=== PATIENT | female | born 1930 ===

== ENCOUNTER 2017-02-26 12:17 | Inpatient (IN) | payer MEDICAID, OTHER ==
[2017-02-26 12:24] VITALS: BMI 18.6
--- NOTE | 2017-02-26 12:44 | C.PDOC ---
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 FAMILY STATES WALKING TO BATHROOM, TRIPPED AND FELL ONTO L SIDE. NO OTHER TRAUMA. NO HAQ, CP, OTHER ASSOC SX NPO SINCE 729 EXAM NAD HEENT ATRAUM NECK SUPPLE EXT L HIP SHORTENED, EXT ROTATED. NO ROM. R LE AROM WO DIFF. SKIN INTACT NEURO INTACT - HPI Time Seen by Provider: 02/26/17 12:27 Chief Complaint (Nursing): Hip Pain History Per: Patient History/Exam Limitations: language barrier Injury Occurred (Timing): Just Before Arrival Location Of Injury: Left: Hip Recent travel outside of the [place]: No Past Medical History Reviewed: Historical Data, Nursing Documentation, Vital Signs Vital Signs: Last Vital Signs Temp 98.3 F 02/26/17 12:20 Pulse 64 02/26/17 12:50 Resp 18 02/26/17 12:50 BP 139/61 02/26/17 12:50 Pulse Ox 98 02/26/17 14:02 - Medical History PMH: HTN Family History: States: Unknown Family Hx - Social History Hx Alcohol Use: No Hx Substance Use: No - Immunization History Hx Tetanus Toxoid Vaccination: Yes Hx Influenza Vaccination: Yes Hx Pneumococcal Vaccination: No Review Of Systems Except As Marked, All Systems Reviewed And Found Negative. Constitutional: Negative for: Fever, Chills Cardiovascular: Negative for: Chest Pain, Palpitations Respiratory: Negative for: Cough, Shortness of Breath, Wheezing Gastrointestinal: Negative for: Nausea, Vomiting, Abdominal Pain Musculoskeletal: Positive for: Other (LEFT HIP PAIN ) Skin: Negative for: Rash Neurological: Negative for: Weakness, Numbness, Headache, Dizziness Physical Exam - Physical Exam Appears: Non-toxic, No Acute Distress Skin: Normal Color, Warm, Dry Head: Atraumatic, Normacephalic Eye(s): bilateral: Normal Inspection, PERRL, EOMI Oral Mucosa: Moist Neck: Normal ROM, No Midline Cervical Tenderness, No Paracervical Tenderness, No Step Off Deformity, Supple Chest: Symmetrical, No Tenderness Cardiovascular: Rhythm Regular Respiratory: Normal Breath Sounds, No Rales, No Rhonchi, No Wheezing Gastrointestinal/Abdominal: Soft, No Tenderness, No Distention, No Guarding, No Rebound Extremity: Capillary Refill (< 2 SEC. ), Other (EXT L HIP SHORTENED, EXT ROTATED. NO ROM. R LE AROM WO DIFF.) Extremity: Bilateral: Normal Color And Temperature Pulses: Left Dorsalis Pedis: Normal, Right Dorsalis Pedis: Normal Neurological/Psych: Oriented x3, Normal Speech, Normal Cognition, Normal Motor, Normal Sensation, Other (NEURO INTACT) ED Course And Treatment - Laboratory Results Result Diagrams: 02/26/17 13:49 02/26/17 13:49 ECG: Interpreted By Me ECG Rhythm: Sinus Rhythm ECG Interpretation: Normal Rate From EC O2 Sat by Pulse Oximetry: 98 Pulse Ox Interpretation: Normal - Radiology CXR: Interpreted by Me CXR Interpretation: Yes: No Acute Disease - Other Rad LEFT HIP X-RAY X-Ray: Interpreted by Me, Viewed By Me Interpretation: +FRACTURE Progress - Re-Evaluation Re-evaluation Note: 02/26/17 13:31 D/W DR Russell SANTANA WILL ADMIT - Data Reviewed Data Reviewed: Lab, Diagnostic imaging, EKG - Continuity of Care Discussed patient case with:: Patient, Family-HIPPA compliant, On-call PMD-pt unassigned Disposition Counseled Patient/Family Regarding: Studies Performed, Diagnosis - Disposition Disposition: HOSPITALIZED Disposition Time: 13:47 Condition: STABLE - POA Present On Arrival: Falls Or Trauma - Clinical Impression Clinical Impression: Hip fracture - Scribe Statement The provider has reviewed the documentation as recorded by the Scribe CHRIS CHA All medical record entries made by the Scribe were at my direction and personally dictated by me. I have reviewed the chart and agree that the record accurately reflects my personal performance of the history, physical exam, medical decision making, and the department course for this patient. I have also personally directed, reviewed, and agree with the discharge instructions and disposition. Decision To Admit - Pt Status Changed To: Hospital Disposition Of: Inpatient - Admit Certification Admit to Inpatient:: After my assessment, the patient will require hospitalization for at least two midnights. This is because of the severity of symptoms shown, intensity of services needed, and/or the medical risk in this patient being treated as an outpatient. - InPatient: Physician Admission Certification: I certify that this patient requires 2 or more midnights of care for the following reason:: SEE NOTE - . Bed Request Type: Regular Admitting Physician: Edgardo Santana Patient Diagnosis: Hip fracture
[2017-02-26] MEDS ORDERED: Sodium Chloride 0.9% 1,000 ML IV ONE (13:17)
--- NOTE | 2017-02-26 13:44 | CP.PCM.HP ---
Addendum entered and electronically signed by Carmela Graves DO 02/26/17 16: 33: Cardiac diet ordered for now since patient is pending ECHO and cardiac clearance. Reyna Graves, PGY 3 Original Note: <Carmela Graves - Last Filed: 02/26/17 15:49> History of Present Illness - History of Present Illness History of Present Illness: CC: " I tripped and fell" 87 year old female with PMHx of HTN and TIA X2 presents after she fell at home earlier today. Patient reports she had mechanical fall after she tripped and fell on small step coming out of the bathroom. She has no pain at rest. She denies LOC and states she did not hit her head. She fell on the left side of her body and was not down for long. She lives in [facility] and has been staying with her daughters for the past 1.5 months. She denies falling often, with last fall 4 years ago after she slipped in the shower. Denies chest pain, SOB, fevers, chills, diaphoresis, palpitation, weakness, changes in vision, dizziness. She only takes Enalapril 5 mg which she took this morning. She has a good appetite and has not missed meals. In [facility] she lives alone and is independent with all ADLs, IADLs. She used to follow with a tribal judge for 7 years up until last year when she was told she no longer had to see him. She started seeing him after episode of chest pain and was told she had "pre-infarct " at the time. Patient takes Enalapril and Isordil as per tribal judge. She does not take Aspirin due to history of hemorrhoids. 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 Medications: Enalapril, Isordil. Allergy: NKDA Social Hx: denies tobacco, alcohol, drugs. Surgery Hx: Cholecystectomy. Family Hx: 1 brother with gastric CA, 2 brothers with colon CA PMD: in [facility] Present on Admission - Present on Admission Any Indicators Present on Admission: No Review of Systems - Constitutional Constitutional: absent: Chills, Fever - EENT Eyes: absent: Blurred Vision, Change in Vision - Cardiovascular Cardiovascular: absent: Chest Pain, Dyspnea - Respiratory Respiratory: absent: Cough, Dyspnea - Gastrointestinal Gastrointestinal: absent: Abdominal Pain, Bloating, Nausea, Vomiting - Genitourinary Genitourinary: absent: Difficulty Urinating, Dysuria - Musculoskeletal Musculoskeletal: absent: Back Pain, Numbness, Tingling Additional comments: +left hip pain to palpation only - Integumentary Integumentary: absent: Wounds - Neurological Neurological: absent: Dizziness, Numbness, Headaches, Paresthesias, Syncope, Tingling, Weakness - Psychiatric Psychiatric: absent: Anxiety, Depression - Endocrine Endocrine: absent: Fatigue, Palpitations - Hematologic/Lymphatic Hematologic: absent: Easy Bruising Past Patient History - Past Social History Smoking Status: Never Smoked - CARDIAC Hx Hypertension: Yes - PSYCHIATRIC Hx Substance Use: No - ANESTHESIA Hx Anesthesia: No Meds Allergies/Adverse Reactions: Allergies Allergy/AdvReac Type Severity Reaction Status Date / Time No Known Allergies Allergy Unverified 02/26/17 12:19 Physical Exam - Constitutional Appears: No Acute Distress - Head Exam Head Exam: NORMAL INSPECTION, NORMOCEPHALIC - Eye Exam Eye Exam: EOMI, Normal appearance - ENT Exam ENT Exam: Mucous Membranes Moist - Neck Exam Neck exam: Positive for: Full Rom, Normal Inspection - Respiratory Exam Respiratory Exam: Clear to Auscultation Bilateral, NORMAL BREATHING PATTERN - Cardiovascular Exam Cardiovascular Exam: REGULAR RHYTHM, +S1, +S2 - GI/Abdominal Exam GI & Abdominal Exam: Normal Bowel Sounds, Soft. absent: Distended, Tenderness - Extremities Exam Extremities exam: Positive for: full ROM (right left), pedal pulses present. Negative for: calf tenderness Additional comments: Left leg: externally rotated. - Neurological Exam Neurological exam: Alert, Oriented x3 - Psychiatric Exam Psychiatric exam: Normal Affect, Normal Mood - Skin Skin Exam: Dry, Normal Color, Warm Results - Vital Signs Recent Vital Signs: Last Vital Signs Temp 98.3 F 02/26/17 12:20 Pulse 64 02/26/17 12:50 Resp 18 02/26/17 12:50 BP 139/61 02/26/17 12:50 Pulse Ox 98 02/26/17 13:10 - Labs Result Diagrams: 02/26/17 13:49 02/26/17 13:49 Assessment & Plan (1) Hip fracture Assessment and Plan: As seen on X-ray of hips. Ortho consult placed- Dr. Ramirez- help appreciated NPO for now pending ortho eval Tylenol 650 mg Q6H PRN for pain Imaging: Lower Extremity CT: Comminuted mildly displaced fracture of the intertrochanteric left hip and left femoral neck. Status: Acute (2) History of angina Assessment and Plan: Patient on nitrate Isordil as home med. She used to follow up with tribal judge for many years for history of cardiac "pre-infarct" f/u EKG Cardio consult placed- Dr. Arora- help appreciated Will need cardio clearance prior to OR Status: Acute (3) Anemia Assessment and Plan: H/H: 8.4/27.8, MCV 77, MCHC 30.2. Patient with microcytic anemia. Likely secondary to iron deficiency. Will check Iron studies in the AM. Status: Acute (4) Leukocytosis Assessment and Plan: Likely related to stress reaction as there is no shift. f/u CBC in the AM If WBC continues to increase, will consider further workup. Status: Acute (5) Elevated BUN Assessment and Plan: BUN 33, Cr 1.1 Start NS at 100 cc/hr Status: Acute (6) HTN (hypertension) Assessment and Plan: Start home medication of Enalapril 5 mg PO daily Status: Acute (7) Prophylactic measure Assessment and Plan: Pepcid 20 mg PO daily SCD on the right leg Contraindication for DVT prophylaxis: anemia, ortho surgery Status: Acute <Edgardo Kelley - Last Filed: 02/26/17 20:17> Results - Vital Signs Recent Vital Signs: Last Vital Signs Temp 98.4 F 02/26/17 16:35 Pulse 74 02/26/17 16:35 Resp 20 02/26/17 16:35 BP 148/70 02/26/17 16:35 Pulse Ox 97 02/26/17 16:35 - Labs Result Diagrams: 02/26/17 13:49 02/26/17 13:49 Labs: Laboratory Results - last 24 hr 02/26/17 02/26/17 02/26/17 13:49 13:49 13:49 WBC 12.1 H RBC 3.60 L Hgb 8.4 L Hct 27.8 L MCV 77.0 L MCH 23.2 L MCHC 30.2 L RDW 19.6 H Plt Count 278 MPV 9.0 Neut % (Auto) 57.2 Lymph % (Auto) 27.2 [place] % (Auto) 6.1 Eos % (Auto) 9.2 H Baso % (Auto) 0.3 Neut # 7.0 Lymph # 3.3 [place] # 0.7 Eos # 1.1 H Baso # 0.0 PT 10.6 INR 0.9 APTT 25 Sodium 140 Potassium 4.7 Chloride 106 Carbon Dioxide 17 L Anion Gap 22 H BUN 33 H Creatinine 1.1 Est GFR ( Amer) 57 Est GFR (Non-Af Amer) 47 Random Glucose 121 H Calcium 9.3 Total Bilirubin 0.4 AST 37 H ALT 46 Alkaline Phosphatase 142 H Total Protein 7.4 Albumin 3.7 Globulin 3.7 Albumin/Globulin Ratio 1.0 Blood Type Antibody Screen 02/26/17 13:49 WBC RBC Hgb Hct MCV MCH MCHC RDW Plt Count MPV Neut % (Auto) Lymph % (Auto) [place] % (Auto) Eos % (Auto) Baso % (Auto) Neut # Lymph # [place] # Eos # Baso # PT INR APTT Sodium Potassium Chloride Carbon Dioxide Anion Gap BUN Creatinine Est GFR ( Amer) Est GFR (Non-Af Amer) Random Glucose Calcium Total Bilirubin AST ALT Alkaline Phosphatase Total Protein Albumin Globulin Albumin/Globulin Ratio Blood Type O POSITIVE Antibody Screen Negative Attending/Attestation - Attestation I have personally seen and examined this patient.: Yes I have fully participated in the care of the patient.: Yes I have reviewed all pertinent clinical information: Yes Notes (Text): 02/26/17 20:16 Patient was seen and examined shortly after resident in the ER Bed #6. History, Physical, Assessment and Plan were thoroughly gone over with the Resident. Edgardo Kelley D.O.
[2017-02-26] MEDS ORDERED: Sodium Chloride 0.9% 1,000 ML ONE (13:47)
[2017-02-26 13:54] LABS: BASO % 0.3 % (0.0-2.0); EOS # 1.1 K/uL (0.0-0.7); EOS % 9.2 % (0.0-4.0); HEMOGLOBIN 8.4 g/dL (11.0-16.0); LYMPH # 3.3 K/uL (1.0-4.3); LYMPH % 27.2 % (20.0-40.0); MEAN CORPUSCULAR HEMOGLOBIN 23.2 pg (27.0-31.0); MEAN CORPUSCULAR HGB CONC 30.2 g/dL (33.0-37.0); MONO # 0.7 K/uL (0.0-0.8); MONO % 6.1 % (0.0-10.0); NEUT % 57.2 % (50.0-75.0); RBC 3.6 Mil/uL (3.80-5.20); RED CELL DISTRIBUTION WIDTH 19.6 % (11.5-14.5); WHITE BLOOD COUNT 12.1 K/uL (4.8-10.8)
[2017-02-26 14:03] LABS: ALBUMIN 3.7 g/dL (3.5-5.0)
[2017-02-26 14:05] LABS: INR 0.9; PROTHROMBIN TIME 10.6 SECONDS (9.7-12.2)
[2017-02-26 14:07] LABS: CALCIUM 9.3 mg/dl (8.6-10.4)
--- NOTE | 2017-02-26 14:47 | CP.PCM.CON ---
<Nancy Durant - Last Filed: 02/26/17 16:45> History of Present Illness - History of Present Illness History of Present Illness: Consult note for Dr. Arora Reason for consult: risk stratification for OR 87yo PMHx of HTN, TIA X2, hemorrhoids, GERD, osteoporosis presented to ER s/p witnessed mechanical fall. Patient's daughter is an RN and gave history. Patient fell on a step when coming out of the bathroom and denied any headache, dizziness, or LOC at time of event. She fell on the left side of her body and had excruciating pain. Patient does not have a history of frequent falls and ambulates with no assistance. In [facility] she lives alone and is independent with all ADLs, IADLs. Patient reports having seen a industrial machine operator 7 years ago when she had a "pre-infarct." She was not started on ASA due to hemorrhoids. Patient denied headache, dizziness, chest pain, palpitations, SOB, cough, abd pain, nausea, vomiting, bowel/bladder complaints, swelling of legs b/l. Admitted to pain in L leg, varicose veins, and "bone pain." PMD: in [facility] PMHx: HTN, TIA X2, GERD, hemorrhoids, osteoporosis Meds: Enalapril, Isordil, Protonix Allergies: NKDA PSurgHx: cholecystectomy FamHx: 1 brother with gastric CA, 2 brothers with colon CA SocHx: denies tobacco, alcohol, drugs. ROS Denies: headache, dizziness, chest pain, palpitations, SOB, cough, abd pain, nausea, vomiting, bowel/bladder complaints, swelling of legs b/l Admits: pain in L leg, varicose veins, "bone pain" Review of Systems - Constitutional Constitutional: As Per HPI. absent: Chills, Fever - EENT Eyes: As Per HPI. absent: Blurred Vision Ears: As Per HPI. absent: Dizziness Nose/Mouth/Throat: As Per HPI. absent: Sore Throat - Cardiovascular Cardiovascular: As Per HPI. absent: Chest Pain, Dyspnea, Dyspnea on Exertion, Edema - Respiratory Respiratory: As Per HPI. absent: Cough, Dyspnea on Exertion, Chest Congestion - Gastrointestinal Gastrointestinal: As Per HPI. absent: Abdominal Pain, Constipation, Diarrhea, Nausea, Vomiting - Genitourinary Genitourinary: As Per HPI. absent: Dysuria, Hematuria - Musculoskeletal Musculoskeletal: As Per HPI. absent: Back Pain, Numbness, Tingling Additional comments: + pain L hip "bone pain" - Integumentary Integumentary: As Per HPI. absent: Erythema, Rash - Neurological Neurological: As Per HPI. absent: Dizziness, Numbness, Headaches, Syncope - Psychiatric Psychiatric: As Per HPI. absent: Anxiety, Depression - Endocrine Endocrine: As Per HPI. absent: Polydipsia, Polyphagia, Polyuria - Hematologic/Lymphatic Hematologic: As Per HPI. absent: Easy Bleeding, Easy Bruising, Lymphadenopathy Past Patient History - Past Social History Smoking Status: Never Smoked - CARDIAC Hx Hypertension: Yes - PSYCHIATRIC Hx Substance Use: No - ANESTHESIA Hx Anesthesia: No Meds Allergies/Adverse Reactions: Allergies Allergy/AdvReac Type Severity Reaction Status Date / Time No Known Allergies Allergy Unverified 02/26/17 12:19 - Medications Medications: Current Medications Enalapril Maleate (Vasotec) 5 mg PO DAILY [place] Sodium Chloride (Sodium Chloride 0.9%) 1,000 mls @ 100 mls/hr IV .Q10H ONE Stop: 02/26/17 23:16 Last Admin: 02/26/17 13:40 Dose: 100 mls/hr Physical Exam - Constitutional Appears: No Acute Distress - Head Exam Head Exam: ATRAUMATIC, NORMAL INSPECTION, NORMOCEPHALIC - Eye Exam Eye Exam: EOMI, Normal appearance. absent: Conjunctival injection, Scleral icterus Pupil Exam: NORMAL ACCOMODATION - ENT Exam ENT Exam: Mucous Membranes Moist - Neck Exam Neck exam: Positive for: Normal Inspection - Respiratory Exam Respiratory Exam: Clear to Auscultation Bilateral, NORMAL BREATHING PATTERN. absent: Accessory Muscle Use, Rales, Rhonchi, Wheezes, Respiratory Distress - Cardiovascular Exam Cardiovascular Exam: REGULAR RHYTHM, +S1, +S2. absent: Systolic Murmur - GI/Abdominal Exam GI & Abdominal Exam: Normal Bowel Sounds, Soft. absent: Firm, Guarding, Rigid, Tenderness - Extremities Exam Extremities exam: Positive for: normal capillary refill, tenderness (L hip), pedal pulses present. Negative for: pedal edema Additional comments: varicose veins b/l - Back Exam Back exam: absent: rash noted - Neurological Exam Neurological exam: Alert, Oriented x3 - Psychiatric Exam Psychiatric exam: Normal Affect, Normal Mood - Skin Skin Exam: Dry, Intact, Normal Color, Warm Results - Vital Signs Recent Vital Signs: Last Vital Signs Temp 98.3 F 02/26/17 12:20 Pulse 64 02/26/17 12:50 Resp 18 02/26/17 12:50 BP 139/61 02/26/17 12:50 Pulse Ox 98 02/26/17 14:40 - Labs Result Diagrams: 02/26/17 13:49 02/26/17 13:49 Labs: Laboratory Results - last 24 hr 02/26/17 02/26/17 02/26/17 13:49 13:49 13:49 WBC 12.1 H RBC 3.60 L Hgb 8.4 L Hct 27.8 L MCV 77.0 L MCH 23.2 L MCHC 30.2 L RDW 19.6 H Plt Count 278 MPV 9.0 Neut % (Auto) 57.2 Lymph % (Auto) 27.2 [place] % (Auto) 6.1 Eos % (Auto) 9.2 H Baso % (Auto) 0.3 Neut # 7.0 Lymph # 3.3 [place] # 0.7 Eos # 1.1 H Baso # 0.0 PT 10.6 INR 0.9 APTT 25 Sodium 140 Potassium 4.7 Chloride 106 Carbon Dioxide 17 L Anion Gap 22 H BUN 33 H Creatinine 1.1 Est GFR ( Amer) 57 Est GFR (Non-Af Amer) 47 Random Glucose 121 H Calcium 9.3 Total Bilirubin 0.4 AST 37 H ALT 46 Alkaline Phosphatase 142 H Total Protein 7.4 Albumin 3.7 Globulin 3.7 Albumin/Globulin Ratio 1.0 Blood Type Antibody Screen 02/26/17 13:49 WBC RBC Hgb Hct MCV MCH MCHC RDW Plt Count MPV Neut % (Auto) Lymph % (Auto) [place] % (Auto) Eos % (Auto) Baso % (Auto) Neut # Lymph # [place] # Eos # Baso # PT INR APTT Sodium Potassium Chloride Carbon Dioxide Anion Gap BUN Creatinine Est GFR ( Amer) Est GFR (Non-Af Amer) Random Glucose Calcium Total Bilirubin AST ALT Alkaline Phosphatase Total Protein Albumin Globulin Albumin/Globulin Ratio Blood Type O POSITIVE Antibody Screen Negative Assessment & Plan - Assessment and Plan (Free Text) Assessment: 87yo PMHx of HTN, TIA X2, hemorrhoids, GERD, osteoporosis presented to ER s/p witnessed mechanical fall. Hip fracture seen on CT Cardiology consulted for risk stratification Plan: -f/u Echo -EKG: NSR @ 69bpm -f/u lipid panel -f/u HgbA1c -Continue current medical management Vasotec 5mg po daily Isordil 5mg po bid -Cardiac diet Cardiology will continue to follow Case discussed with Dr. Maite Durant PGY2 <Baron Arora - Last Filed: 02/27/17 20:00> Meds - Medications Medications: Current Medications Acetaminophen (Tylenol 325mg Tab) 650 mg PO Q6 PRN PRN Reason: Pain, moderate (4-7) Last Admin: 02/26/17 21:34 Dose: 650 mg Clonazepam (Klonopin) 1.5 mg PO HS [facility] Last Admin: 02/26/17 21:27 Dose: 1.5 mg Enalapril Maleate (Vasotec) 5 mg PO DAILY [facility] Last Admin: 02/27/17 09:41 Dose: 5 mg Famotidine (Pepcid) 20 mg PO DAILY [facility] Last Admin: 02/27/17 09:41 Dose: 20 mg Ferrous Sulfate (Feosol) 325 mg PO BID [facility] Last Admin: 02/27/17 09:41 Dose: 325 mg Sodium Chloride (Sodium Chloride 0.9%) 1,000 mls @ 100 mls/hr IV .Q10H [facility] Last Admin: 02/27/17 03:15 Dose: 100 mls/hr Isosorbide Dinitrate (Isordil) 5 mg PO BID [facility] Last Admin: 02/27/17 09:47 Dose: 5 mg Results - Vital Signs Recent Vital Signs: Last Vital Signs Temp 98.4 F 02/27/17 18:29 Pulse 68 02/27/17 18:29 Resp 20 02/27/17 18:29 BP 158/77 H 02/27/17 18:29 Pulse Ox 97 02/27/17 15:18 - Labs Result Diagrams: 02/27/17 07:28 02/27/17 07:28 Labs: Laboratory Results - last 24 hr 02/26/17 02/26/17 02/27/17 13:49 21:25 07:28 WBC 8.2 RBC 3.26 L Hgb 7.7 L Hct 24.8 L MCV 76.0 L MCH 23.6 L MCHC 31.0 L RDW 19.6 H Plt Count 228 MPV 8.2 Neut % (Auto) 72.3 Lymph % (Auto) 16.6 L [place] % (Auto) 8.1 Eos % (Auto) 2.5 Baso % (Auto) 0.5 Neut # 5.9 Lymph # 1.4 [place] # 0.7 Eos # 0.2 Baso # 0.0 Sodium Potassium Chloride Carbon Dioxide Anion Gap BUN Creatinine Est GFR ( Amer) Est GFR (Non-Af Amer) Random Glucose Calcium Iron TIBC % Saturation Transferrin Ferritin Total Bilirubin AST ALT Alkaline Phosphatase Total Protein Albumin Globulin Albumin/Globulin Ratio Triglycerides Cholesterol LDL Cholesterol Direct HDL Cholesterol Urine Color Yellow Urine Clarity Hazy Urine pH 5.0 Ur Specific [place] 1.014 Urine Protein Negative Urine Glucose (UA) Normal Urine Ketones Negative Urine Blood Negative Urine Nitrate Negative Urine Bilirubin Negative Urine Urobilinogen Normal Ur Leukocyte Esterase Trace Urine WBC (Auto) 2 Ur Squamous Epith Cells 3 Amorphous Sediment Few H Urine Bacteria Occ H Blood Type O POSITIVE Antibody Screen Negative 02/27/17 02/27/17 02/27/17 07:28 07:28 07:28 WBC RBC Hgb Hct MCV MCH MCHC RDW Plt Count MPV Neut % (Auto) Lymph % (Auto) [place] % (Auto) Eos % (Auto) Baso % (Auto) Neut # Lymph # [place] # Eos # Baso # Sodium 140 Potassium 3.9 Chloride 106 Carbon Dioxide 17 L Anion Gap 21 H BUN 22 H Creatinine 0.9 Est GFR ( Amer) > 60 Est GFR (Non-Af Amer) 60 Random Glucose 95 Calcium 8.5 L Iron 37 TIBC 355 % Saturation Transferrin 255.84 Ferritin 5.8 Total Bilirubin 0.4 AST 65 H D ALT 79 H D Alkaline Phosphatase 102 Total Protein 6.7 Albumin 3.4 L Globulin 3.4 Albumin/Globulin Ratio 1.0 Triglycerides 129 Cholesterol 123 LDL Cholesterol Direct 56 HDL Cholesterol 39 Urine Color Urine Clarity Urine pH Ur Specific [place] Urine Protein Urine Glucose (UA) Urine Ketones Urine Blood Urine Nitrate Urine Bilirubin Urine Urobilinogen Ur Leukocyte Esterase Urine WBC (Auto) Ur Squamous Epith Cells Amorphous Sediment Urine Bacteria Blood Type Antibody Screen 02/27/17 08:27 WBC RBC Hgb Hct MCV MCH MCHC RDW Plt Count MPV Neut % (Auto) Lymph % (Auto) [place] % (Auto) Eos % (Auto) Baso % (Auto) Neut # Lymph # [place] # Eos # Baso # Sodium Potassium Chloride Carbon Dioxide Anion Gap BUN Creatinine Est GFR ( Amer) Est GFR (Non-Af Amer) Random Glucose Calcium Iron TIBC % Saturation 10 L Transferrin Ferritin Total Bilirubin AST ALT Alkaline Phosphatase Total Protein Albumin Globulin Albumin/Globulin Ratio Triglycerides Cholesterol LDL Cholesterol Direct HDL Cholesterol Urine Color Urine Clarity Urine pH Ur Specific [place] Urine Protein Urine Glucose (UA) Urine Ketones Urine Blood Urine Nitrate Urine Bilirubin Urine Urobilinogen Ur Leukocyte Esterase Urine WBC (Auto) Ur Squamous Epith Cells Amorphous Sediment Urine Bacteria Blood Type Antibody Screen Attending/Attestation - Attestation I have personally seen and examined this patient.: Yes I have fully participated in the care of the patient.: Yes I have reviewed all pertinent clinical information: Yes Notes (Text): 02/27/17 19:58 In lieu of nl ejection fraction nl ecg no chest pain no chf pt going low to mod risk for milbd to moderate cardiovascular procedure and may proceed benefits outweigh the risks
--- NOTE | 2017-02-26 15:44 | CT ---
PROCEDURE: CT left hip HISTORY: HIP FRACTURE COMPARISON: Not available TECHNIQUE: 2.5 mm contiguous axial sections were acquired through the left hip. Sagittal and coronal images were reformatted from the axial scan. No prior examination is available for comparison. FINDINGS: There is a comminuted mildly displaced fracture of the left hip involving the intertrochanteric portion as well as extending to the femoral neck. There is no significant varus or valgus angulation evident. The femoral head is normally situated within the acetabulum. There is no significant soft tissue hematoma seen about the left hip fracture. There is mild degenerative change of the left sacroiliac joint noted. The visualized soft tissue structures of the pelvic cavity are unremarkable. IMPRESSION: Comminuted mildly displaced fracture of the intertrochanteric left hip and left femoral neck.
--- NOTE | 2017-02-26 16:40 | RAD ---
PROCEDURE: CHEST RADIOGRAPH, 1 VIEW HISTORY: TRAUMA COMPARISON: None available. FINDINGS: LUNGS: Clear. PLEURA: No pneumothorax or pleural fluid seen. CARDIOVASCULAR: No radiographic findings to suggest acute or significant cardiovascular disease. OSSEOUS STRUCTURES: No significant abnormalities. VISUALIZED UPPER ABDOMEN: Normal. OTHER FINDINGS: None. IMPRESSION: No active disease. Concordant results with the preliminary interpretation rendered by the emergency department physician procedure.
--- NOTE | 2017-02-26 16:41 | RAD ---
PROCEDURE: Left Hip X-ray Radiographs. HISTORY: TRAUMA COMPARISON: None. FINDINGS: BONES: Normal. No fractureFracture through the greater trochanter and intertrochanteric region. This appears to be an acute fracture. . JOINTS: Preservation of femoral acetabular relationship. SOFT TISSUES: Normal. OTHER FINDINGS: Bowel gas pattern compatible with ileus. IMPRESSION: Acute intratrochanteric fracture. Concordant results with the preliminary interpretation rendered by the emergency department physician procedure.
[2017-02-26] MEDS: Sodium Chloride 0.9% 1,000 ML IV SCH (18:24)
--- NOTE | 2017-02-26 18:25 | CP.PCM.HP ---
Past Patient History - Past Medical History & Family History Past Medical History?: Yes - Past Social History Smoking Status: Never Smoked - CARDIAC Hx Hypertension: Yes - PULMONARY Hx Respiratory Disorders: No - NEUROLOGICAL Hx Neurological Disorder: No - HEENT Hx HEENT Problems: No - RENAL Hx Chronic Kidney Disease: No - ENDOCRINE/METABOLIC Hx Endocrine Disorders: No - HEMATOLOGICAL/ONCOLOGICAL Hx Blood Disorders: No - INTEGUMENTARY Hx Dermatological Problems: No - MUSCULOSKELETAL/RHEUMATOLOGICAL Hx Musculoskeletal Disorders: Yes Hx Falls: Yes Hx Osteoporosis: Yes - GASTROINTESTINAL Hx Gastrointestinal Disorders: No - GENITOURINARY/GYNECOLOGICAL Hx Genitourinary Disorders: No - PSYCHIATRIC Hx Substance Use: No - SURGICAL HISTORY Hx Cholecystectomy: Yes (20 years ago) - ANESTHESIA Hx Anesthesia: No Meds Allergies/Adverse Reactions: Allergies Allergy/AdvReac Type Severity Reaction Status Date / Time No Known Allergies Allergy Unverified 02/26/17 12:19 Results - Vital Signs Recent Vital Signs: Last Vital Signs Temp 98.4 F 02/26/17 16:35 Pulse 74 02/26/17 16:35 Resp 20 02/26/17 16:35 BP 148/70 02/26/17 16:35 Pulse Ox 97 02/26/17 16:35 - Labs Result Diagrams: 02/26/17 13:49 02/26/17 13:49 Labs: Laboratory Results - last 24 hr 02/26/17 02/26/17 02/26/17 13:49 13:49 13:49 WBC 12.1 H RBC 3.60 L Hgb 8.4 L Hct 27.8 L MCV 77.0 L MCH 23.2 L MCHC 30.2 L RDW 19.6 H Plt Count 278 MPV 9.0 Neut % (Auto) 57.2 Lymph % (Auto) 27.2 [place] % (Auto) 6.1 Eos % (Auto) 9.2 H Baso % (Auto) 0.3 Neut # 7.0 Lymph # 3.3 [place] # 0.7 Eos # 1.1 H Baso # 0.0 PT 10.6 INR 0.9 APTT 25 Sodium 140 Potassium 4.7 Chloride 106 Carbon Dioxide 17 L Anion Gap 22 H BUN 33 H Creatinine 1.1 Est GFR ( Amer) 57 Est GFR (Non-Af Amer) 47 Random Glucose 121 H Calcium 9.3 Total Bilirubin 0.4 AST 37 H ALT 46 Alkaline Phosphatase 142 H Total Protein 7.4 Albumin 3.7 Globulin 3.7 Albumin/Globulin Ratio 1.0 Blood Type Antibody Screen 02/26/17 13:49 WBC RBC Hgb Hct MCV MCH MCHC RDW Plt Count MPV Neut % (Auto) Lymph % (Auto) [place] % (Auto) Eos % (Auto) Baso % (Auto) Neut # Lymph # [place] # Eos # Baso # PT INR APTT Sodium Potassium Chloride Carbon Dioxide Anion Gap BUN Creatinine Est GFR ( Amer) Est GFR (Non-Af Amer) Random Glucose Calcium Total Bilirubin AST ALT Alkaline Phosphatase Total Protein Albumin Globulin Albumin/Globulin Ratio Blood Type O POSITIVE Antibody Screen Negative
[2017-02-26 21:48] LABS: SQUAMOUS EPITHIAL 3 /hpf (0-5); URINE AMORPHOUS SEDIMENT FEW /ul (<OCC); URINE BACTERIA OCC (<OCC); URINE BILIRUBIN NEGATIVE (NEGATIVE); URINE BLOOD NEGATIVE (NEGATIVE); URINE CLARITY Hazy (Clear); URINE COLOR Yellow (YELLOW); URINE GLUCOSE (UA) NORMAL (Normal); URINE LEUKOCYTE ESTERASE TRACE Leu/uL (Negative); URINE NITRATE NEGATIVE (NEGATIVE); URINE PROTEIN NEGATIVE (NEGATIVE); URINE UROBILINOGEN NORMAL mg/dL (0.2-1.0)
[2017-02-27] MEDS: Sodium Chloride 0.9% 1,000 ML IV SCH (03:15)
--- NOTE | 2017-02-27 06:29 | CP.PCM.PN ---
Subjective - Date & Time of Evaluation Date of Evaluation: 02/27/17 Time of Evaluation: 06:28 - Subjective Subjective: Pt no complaints this am Objective - Vital Signs/Intake and Output Vital Signs (last 24 hours): Temp Pulse Resp BP Pulse Ox 98.5 F 72 20 122/65 99 02/26/17 23:10 02/26/17 23:10 02/26/17 23:10 02/26/17 23:10 02/26/17 23:10 - Medications Medications: Current Medications Acetaminophen (Tylenol 325mg Tab) 650 mg PO Q6 PRN PRN Reason: Pain, moderate (4-7) Last Admin: 02/26/17 21:34 Dose: 650 mg Clonazepam (Klonopin) 1.5 mg PO HS [facility] Last Admin: 02/26/17 21:27 Dose: 1.5 mg Enalapril Maleate (Vasotec) 5 mg PO DAILY [facility] Enoxaparin Sodium (Lovenox) 40 mg SC DAILY [facility] Famotidine (Pepcid) 20 mg PO DAILY [facility] Sodium Chloride (Sodium Chloride 0.9%) 1,000 mls @ 100 mls/hr IV .Q10H [facility] Last Admin: 02/27/17 03:15 Dose: 100 mls/hr Isosorbide Dinitrate (Isordil) 5 mg PO BID [facility] Last Admin: 02/26/17 18:22 Dose: 5 mg - Labs Labs: 02/26/17 13:49 02/26/17 13:49 PT 10.6 SECONDS (9.7-12.2) 02/26/17 13:49 INR 0.9 02/26/17 13:49 APTT 25 SECONDS (21-34) 02/26/17 13:49 - Constitutional Appears: Chronically Ill - Head Exam Head Exam: NORMOCEPHALIC - Eye Exam Eye Exam: Normal appearance - ENT Exam ENT Exam: Mucous Membranes Moist - Respiratory Exam Respiratory Exam: Clear to Ausculation Bilateral - Cardiovascular Exam Cardiovascular Exam: REGULAR RHYTHM - GI/Abdominal Exam GI & Abdominal Exam: Normal Bowel Sounds - Exam External exam: NORMAL EXTERNAL EXAM. absent: Ecchymosis Speculum exam: absent: Erythema - Extremities Exam Extremities Exam: Pedal Edema - Neurological Exam Neurological Exam: Awake Assessment and Plan (1) HTN (hypertension) Assessment & Plan: pt may proceed for orthopedic surgery benefits outweigh riskd nl ef, nl echo please refer to consult note Status: Acute (2) Hip fracture Status: Acute
[2017-02-27 07:41] LABS: BASO % 0.5 % (0.0-2.0); EOS # 0.2 K/uL (0.0-0.7); EOS % 2.5 % (0.0-4.0); HEMOGLOBIN 7.7 g/dL (11.0-16.0); LYMPH # 1.4 K/uL (1.0-4.3); LYMPH % 16.6 % (20.0-40.0); MEAN CORPUSCULAR HEMOGLOBIN 23.6 pg (27.0-31.0); MEAN PLATELET VOLUME 8.2 fL (7.2-11.7); MONO # 0.7 K/uL (0.0-0.8); MONO % 8.1 % (0.0-10.0); NEUT # 5.9 K/uL (1.8-7.0); NEUT % 72.3 % (50.0-75.0); NRBC % 0.1 % (0.0-2.0); RBC 3.26 Mil/uL (3.80-5.20); RED CELL DISTRIBUTION WIDTH 19.6 % (11.5-14.5); WHITE BLOOD COUNT 8.2 K/uL (4.8-10.8)
--- NOTE | 2017-02-27 07:54 | CP.PCM.PN ---
<Yoshi Wilson - Last Filed: 02/27/17 19:51> Subjective - Date & Time of Evaluation Date of Evaluation: 02/27/17 Time of Evaluation: 09:45 - Subjective Subjective: Patient was seen and examined at bedside. Patient's daughter was at bedside. Patient complained of lower abdominal cramps. She also stated that she had an episode of diarrhea yesterday. She had no other complaints. She denied chest pain, shortness of breath, headache, nausea, vomiting, constipation, fever, chills. Objective - Vital Signs/Intake and Output Vital Signs (last 24 hours): Temp Pulse Resp BP Pulse Ox 98.5 F 72 20 122/65 99 02/26/17 23:10 02/26/17 23:10 02/26/17 23:10 02/26/17 23:10 02/26/17 23:10 - Medications Medications: Current Medications Acetaminophen (Tylenol 325mg Tab) 650 mg PO Q6 PRN PRN Reason: Pain, moderate (4-7) Last Admin: 02/26/17 21:34 Dose: 650 mg Clonazepam (Klonopin) 1.5 mg PO HS [facility] Last Admin: 02/26/17 21:27 Dose: 1.5 mg Enalapril Maleate (Vasotec) 5 mg PO DAILY [facility] Enoxaparin Sodium (Lovenox) 40 mg SC DAILY [facility] Famotidine (Pepcid) 20 mg PO DAILY [facility] Sodium Chloride (Sodium Chloride 0.9%) 1,000 mls @ 100 mls/hr IV .Q10H [facility] Last Admin: 02/27/17 03:15 Dose: 100 mls/hr Isosorbide Dinitrate (Isordil) 5 mg PO BID [facility] Last Admin: 02/26/17 18:22 Dose: 5 mg - Labs Labs: 02/27/17 07:28 02/26/17 13:49 PT 10.6 SECONDS (9.7-12.2) 02/26/17 13:49 INR 0.9 02/26/17 13:49 APTT 25 SECONDS (21-34) 02/26/17 13:49 - Constitutional Appears: Well, Non-toxic, No Acute Distress - Head Exam Head Exam: NORMAL INSPECTION - Eye Exam Eye Exam: EOMI, Normal appearance, PERRL - ENT Exam ENT Exam: Mucous Membranes Moist - Respiratory Exam Respiratory Exam: Clear to Ausculation Bilateral. absent: Rales, Rhonchi, Wheezes - Cardiovascular Exam Cardiovascular Exam: REGULAR RHYTHM, +S1, +S2 - GI/Abdominal Exam GI & Abdominal Exam: Soft, Normal Bowel Sounds. absent: Tenderness - Rectal Exam Rectal Exam: Deferred - Extremities Exam Extremities Exam: absent: Calf Tenderness, Pedal Edema - Neurological Exam Neurological Exam: Alert, Awake, Oriented x3 - Psychiatric Exam Psychiatric exam: Normal Affect, Normal Mood - Skin Skin Exam: Dry, Intact, Normal Color, Warm Assessment and Plan - Assessment and Plan (Free Text) Assessment: Assessment & Plan (1) Hip fracture Assessment and Plan: 02/27: will transfuse 2 units of pRBC tomorrow over 4 hours for each unit. Will pre-medicate with tylenol and benedryl 20 minutes before each transfusion to alleviate symptoms due to transfusion reaction. 02/27: Possible surgery wednesday, per Dr Savage As seen on X-ray of hips. Ortho consult placed- Dr. Ramirez- help appreciated Tylenol 650 mg Q6H PRN for pain Imaging: Lower Extremity CT: Comminuted mildly displaced fracture of the intertrochanteric left hip and left femoral neck. Status: Acute (2) History of angina Assessment and Plan: Patient on nitrate Isordil as home med. She used to follow up with chief radiation therapist for many years for history of cardiac "pre-infarct" f/u EKG Cardio consult placed- Dr. Arora- help appreciated Will need cardio clearance prior to OR Status: Acute (3) Anemia Assessment and Plan: 02/27: 02/27: will transfuse 2 units of pRBC tomorrow over 4 hours for each unit. Will pre-medicate with tylenol and benedryl 20 minutes before each transfusion to alleviate symptoms due to transfusion reaction. H/H: 8.4/27.8, MCV 77, MCHC 30.2. Patient with microcytic anemia. Likely secondary to iron deficiency. Will check Iron studies in the AM. Status: Acute (4) Leukocytosis Assessment and Plan: Likely related to stress reaction as there is no shift. f/u CBC in the AM If WBC continues to increase, will consider further workup. Status: Acute (5) Elevated BUN Assessment and Plan: BUN 33, Cr 1.1 Start NS at 100 cc/hr Status: Acute (6) HTN (hypertension) Assessment and Plan: Start home medication of Enalapril 5 mg PO daily Status: Acute (7) Diarrhea 02/27: stool cultures, ova parasite, cdiff toxin a and b - f/u (8) Prophylactic measure Assessment and Plan: Pepcid 20 mg PO daily SCD on the right leg Contraindication for DVT prophylaxis: anemia, ortho surgery heart healthy diet Status: Acute <Edgardo Kelley - Last Filed: 02/27/17 20:07> Objective - Vital Signs/Intake and Output Vital Signs (last 24 hours): Temp Pulse Resp BP Pulse Ox 98.4 F 68 20 158/77 H 97 02/27/17 18:29 02/27/17 18:29 02/27/17 18:29 02/27/17 18:29 02/27/17 15:18 Intake and Output: 02/27/17 02/28/17 18:59 06:59 Intake Total 325 Balance 325 - Medications Medications: Current Medications Acetaminophen (Tylenol 325mg Tab) 650 mg PO Q6 PRN PRN Reason: Pain, moderate (4-7) Last Admin: 02/26/17 21:34 Dose: 650 mg Clonazepam (Klonopin) 1.5 mg PO HS [facility] Last Admin: 02/26/17 21:27 Dose: 1.5 mg Enalapril Maleate (Vasotec) 5 mg PO DAILY [facility] Last Admin: 02/27/17 09:41 Dose: 5 mg Famotidine (Pepcid) 20 mg PO DAILY [facility] Last Admin: 02/27/17 09:41 Dose: 20 mg Ferrous Sulfate (Feosol) 325 mg PO BID [facility] Last Admin: 02/27/17 09:41 Dose: 325 mg Isosorbide Dinitrate (Isordil) 5 mg PO BID [facility] Last Admin: 02/27/17 09:47 Dose: 5 mg - Labs Labs: 02/27/17 07:28 02/27/17 07:28 PT 10.6 SECONDS (9.7-12.2) 02/26/17 13:49 INR 0.9 02/26/17 13:49 APTT 25 SECONDS (21-34) 02/26/17 13:49 Attending/Attestation - Attestation I have personally seen and examined this patient.: Yes I have fully participated in the care of the patient.: Yes I have reviewed all pertinent clinical information, including history, physical exam and plan: Yes Notes (Text): 02/27/17 20:04 Patient was seen and examined at 9 AM 02/27/17 with Daughters Mary and Marlee ) present Exam, Assessment and Plan were thoroughly gone over with the Resident. Assessment and Plan above should also included the followin). Acute Renal Insufficiency: patient was given NS at 100 ml per hour x 1 liter and the BUN improved. F/U repeat CBC s/p 2 units of PRBC. Patient is not cleared for surgery until we have stabilization of Hbg/Hct and until cleared by Cardiology. Edgardo Kelley D.O.
[2017-02-27 08:39] LABS: ALBUMIN 3.4 g/dL (3.5-5.0)
[2017-02-27 08:42] LABS: ALT/SGPT 79 U/L (9-52); AST/SGOT 65 U/L (14-36); BLOOD UREA NITROGEN 22 mg/dL (7-17); CALCIUM 8.5 mg/dl (8.6-10.4); GFR AFRICAN-AMERICAN > 60; GFR NON-AFRICAN AMERICAN 60
[2017-02-27 08:43] LABS: HDL CHOLESTEROL 39 mg/dL (30-70); IRON 37 ug/dL (37-170)
[2017-02-27 08:52] LABS: TOTAL IRON BINDING CAPACITY 355 ug/dL (250-450)
[2017-02-27 08:54] LABS: LDL CHOLESTEROL 56 mg/dL (0-129)
[2017-02-27 09:14] LABS: FERRITIN 5.8 ng/mL
[2017-02-27] MEDS ORDERED: Enoxaparin 40 mg Syringe SC SCH (10:00)
--- NOTE | 2017-02-27 13:34 | CARD ---
APPROVED REPORT EXAM: Two-dimensional and M-mode echocardiogram with Doppler and color Doppler. Other Information Quality : GoodRhythm : NSR INDICATION cardiac risk stratification, hip fracture RISK FACTORS Hypertension M-Mode DIMENSIONS RVDd1.24 (2.1-3.2cm)Left Atrium (MM)4.14 (2.5-4.0cm) IVSd0.87 (0.7-1.1cm)Aortic Root3.05 (2.2-3.7cm) LVDd5.72 (4.0-5.6cm)Aortic Cusp Exc.1.33 (1.5-2.0cm) PWd0.90 (0.7-1.1cm)FS (%) 31 % LVDs3.98 (2.0-3.8cm)LVEF (%)57 (>50%) Aortic Valve AI P 1/2 [id number] Mitral Valve MV E Majkkfko29.3cm/sMV A Vkgqupsb412.1cm/sE/A ratio0.6 TDI E/Lateral E'0.0E/Medial E'0.0 Tricuspid Valve TR Peak Tlknumfi101up/sTR Peak Gr.[id number] LEFT VENTRICLE The Left Ventricle is borderline dilated. There is normal left ventricular wall thickness. The left ventricular function is normal. The left ventricular ejection fraction is within the normal range. There is normal LV segmental wall motion. The left ventricular diastolic function is normal. Transmitral Doppler flow pattern is Grade I-abnormal relaxation pattern. No left ventricle thrombus noted on this study. There is no ventricular septal defect visualized. There is no left ventricular aneurysm. There is no mass noted in the left ventricle. RIGHT VENTRICLE The right ventricle is normal size. There is normal right ventricular wall thickness. The right ventricular systolic function is normal. ATRIA The left atrium is borderline dilated. The right atrium size is normal. AORTIC VALVE The aortic valve is normal in structure. No aortic regurgitation is present. There is no aortic valvular stenosis. There is no aortic valvular vegetation. MITRAL VALVE Mitral annular calcification is mild. There is no mitral valve stenosis. There is no mitral valve regurgitation noted. TRICUSPID VALVE The tricuspid valve is normal in structure. There is no tricuspid valve regurgitation noted. GREAT VESSELS The aortic root is normal in size. The ascending aorta is normal in size. The pulmonary artery is normal. The IVC is normal in size and collapses >50% with inspiration. PERICARDIAL EFFUSION There is no pericardial effusion. <Conclusion> The Left Ventricle is borderline dilated. The left ventricular diastolic function is normal. Transmitral Doppler flow pattern is Grade I-abnormal relaxation pattern. LVEF IS 60%.
[2017-02-27 22:42] LABS: BASO % 0.4 % (0.0-2.0); EOS # 0.3 K/uL (0.0-0.7); EOS % 2.9 % (0.0-4.0); LYMPH % 21.4 % (20.0-40.0); MEAN CELL VOLUME 77.4 fL (81.0-99.0); MEAN CORPUSCULAR HEMOGLOBIN 25.2 pg (27.0-31.0); MEAN CORPUSCULAR HGB CONC 32.5 g/dL (33.0-37.0); MEAN PLATELET VOLUME 8.1 fL (7.2-11.7); MONO # 0.7 K/uL (0.0-0.8); MONO % 6.9 % (0.0-10.0); NEUT # 6.5 K/uL (1.8-7.0); NEUT % 68.4 % (50.0-75.0); NRBC % 0.1 % (0.0-2.0); RBC 4.04 Mil/uL (3.80-5.20); WHITE BLOOD COUNT 9.5 K/uL (4.8-10.8)
[2017-02-27 22:45] LABS: HEMOGLOBIN 10.2 g/dL (11.0-16.0)
[2017-02-28] MEDS ORDERED: Phenylephrine 10 mg/ml Inj ONE (07:13)
[2017-02-28] MEDS ORDERED: Propofol 10 mg/ml Inj (20 ML) ONE (07:13)
[2017-02-28] MEDS ORDERED: Succinylcholine Chloride 20 mg/ml Syr (5 ml) IV ONE (07:13)
[2017-02-28] MEDS ORDERED: Rocuronium 10 mg/ml (10 ml) ONE (07:13)
[2017-02-28 07:16] LABS: SQUAMOUS EPITHIAL 1 /hpf (0-5); URINE BILIRUBIN NEGATIVE (NEGATIVE); URINE BLOOD 1+ (NEGATIVE); URINE CLARITY Clear (Clear); URINE COLOR Yellow (YELLOW); URINE GLUCOSE (UA) NORMAL (Normal); URINE LEUKOCYTE ESTERASE NEG Leu/uL (Negative); URINE NITRATE NEGATIVE (NEGATIVE); URINE PROTEIN NEGATIVE (NEGATIVE); URINE UROBILINOGEN NORMAL mg/dL (0.2-1.0)
[2017-02-28 07:17] LABS: BASO % 0.5 % (0.0-2.0); EOS # 0.2 K/uL (0.0-0.7); EOS % 2.2 % (0.0-4.0); HEMOGLOBIN 10.7 g/dL (11.0-16.0); LYMPH # 2.2 K/uL (1.0-4.3); MEAN CELL VOLUME 77.1 fL (81.0-99.0); MEAN CORPUSCULAR HEMOGLOBIN 25.1 pg (27.0-31.0); MEAN CORPUSCULAR HGB CONC 32.5 g/dL (33.0-37.0); MEAN PLATELET VOLUME 8.2 fL (7.2-11.7); MONO # 0.7 K/uL (0.0-0.8); MONO % 7.4 % (0.0-10.0); NEUT # 6.1 K/uL (1.8-7.0); NEUT % 65.9 % (50.0-75.0); NRBC % 0.1 % (0.0-2.0); RBC 4.25 Mil/uL (3.80-5.20); RED CELL DISTRIBUTION WIDTH 19.1 % (11.5-14.5); WHITE BLOOD COUNT 9.2 K/uL (4.8-10.8)
[2017-02-28 07:22] LABS: INR 1.1; PROTHROMBIN TIME 12.4 SECONDS (9.7-12.2)
[2017-02-28] MEDS ORDERED: ePHEDrine 50 mg/ml Inj ONE (07:29)
[2017-02-28] MEDS ORDERED: ceFAZolin IV 2 gm in Dextrose 1 GM/50 ML BAG IVPB ONE (07:56)
[2017-02-28 07:57] LABS: ALBUMIN 3.1 g/dL (3.5-5.0)
[2017-02-28 08:00] LABS: ALB/GLOB RATIO 0.9 (1.0-2.1); ALT/SGPT 59 U/L (9-52); AST/SGOT 41 U/L (14-36); BLOOD UREA NITROGEN 15 mg/dL (7-17); GFR AFRICAN-AMERICAN > 60; GFR NON-AFRICAN AMERICAN 60
[2017-02-28] MEDS ORDERED: Lactated Ringer's 1,000 ML IV ONE (08:00)
[2017-02-28 08:01] LABS: CALCIUM 8.4 mg/dl (8.6-10.4); MAGNESIUM 1.9 mg/dL (1.6-2.3)
--- NOTE | 2017-02-28 08:24 | CP.PCM.PN ---
Subjective - Date & Time of Evaluation Date of Evaluation: 02/28/17 Time of Evaluation: 08:24 - Subjective Subjective: Pt no chest pain tolerating PO Objective - Vital Signs/Intake and Output Vital Signs (last 24 hours): Temp Pulse Resp BP Pulse Ox 98.1 F 75 20 157/76 H 98 02/28/17 06:50 02/28/17 06:50 02/28/17 06:50 02/28/17 06:50 02/28/17 06:50 Intake and Output: 02/28/17 02/28/17 06:59 18:59 Intake Total 325 Output Total 650 Balance -325 - Medications Medications: Current Medications Acetaminophen (Tylenol 325mg Tab) 650 mg PO Q6 PRN PRN Reason: Pain, moderate (4-7) Last Admin: 02/27/17 22:33 Dose: 650 mg Clonazepam (Klonopin) 1.5 mg PO [facility] Last Admin: 02/27/17 22:22 Dose: 1.5 mg Enalapril Maleate (Vasotec) 5 mg PO DAILY [facility] Last Admin: 02/27/17 09:41 Dose: 5 mg Famotidine (Pepcid) 20 mg PO DAILY [facility] Last Admin: 02/27/17 09:41 Dose: 20 mg Ferrous Sulfate (Feosol) 325 mg PO BID [facility] Last Admin: 02/27/17 18:00 Dose: 325 mg Isosorbide Dinitrate (Isordil) 5 mg PO BID [facility] Last Admin: 02/27/17 19:00 Dose: 5 mg - Labs Labs: 02/28/17 07:08 02/28/17 07:08 PT 12.4 SECONDS (9.7-12.2) H 02/28/17 07:08 INR 1.1 02/28/17 07:08 APTT 26 SECONDS (21-34) 02/28/17 07:08 - Constitutional Appears: Chronically Ill - Head Exam Head Exam: ATRAUMATIC - Eye Exam Eye Exam: Normal appearance - ENT Exam ENT Exam: Mucous Membranes Moist - Respiratory Exam Respiratory Exam: NORMAL BREATHING PATTERN - Cardiovascular Exam Cardiovascular Exam: REGULAR RHYTHM - GI/Abdominal Exam GI & Abdominal Exam: Normal Bowel Sounds - Exam External exam: NORMAL EXTERNAL EXAM - Extremities Exam Extremities Exam: Normal Inspection - Neurological Exam Neurological Exam: Alert - Psychiatric Exam Psychiatric exam: Normal Affect - Skin Skin Exam: Dry Assessment and Plan (1) HTN (hypertension) Assessment & Plan: Pt H/H stable now after transfusion. Pt for ortho surgery in am may proceed. Nl ef no trops Status: Acute (2) Hip fracture Status: Acute
--- NOTE | 2017-02-28 09:19 | CP.PCM.PN ---
<Yoshi Wilson - Last Filed: 02/28/17 19:21> Subjective - Date & Time of Evaluation Date of Evaluation: 02/28/17 Time of Evaluation: 08:30 - Subjective Subjective: Patient was seen and examined at bedside. Patient's daughter was by her side. Patient was seen s/p Left hip IT fracture ORIF w/ cephalomedulary nail (short TFN). Patient was resting comfortably in bed. Patient's daughter concerned that patient has not urinated since the procedure. Patient has been using her incentive spirometry as instructed. Patient, per daughter, denies chest pain, abdominal pain, cough, headache, nausea, vomiting, fever, diarrhea. Objective - Vital Signs/Intake and Output Vital Signs (last 24 hours): Temp Pulse Resp BP Pulse Ox 98.1 F 75 20 157/76 H 98 02/28/17 06:50 02/28/17 06:50 02/28/17 06:50 02/28/17 06:50 02/28/17 06:50 Intake and Output: 02/28/17 02/28/17 06:59 18:59 Intake Total 325 Output Total 650 Balance -325 - Medications Medications: Current Medications Acetaminophen (Tylenol 325mg Tab) 650 mg PO Q6 PRN PRN Reason: Pain, moderate (4-7) Last Admin: 02/27/17 22:33 Dose: 650 mg Clonazepam (Klonopin) 1.5 mg PO HS [facility] Last Admin: 02/27/17 22:22 Dose: 1.5 mg Enalapril Maleate (Vasotec) 5 mg PO DAILY [facility] Last Admin: 02/27/17 09:41 Dose: 5 mg Famotidine (Pepcid) 20 mg PO DAILY [facility] Last Admin: 02/27/17 09:41 Dose: 20 mg Ferrous Sulfate (Feosol) 325 mg PO BID [facility] Last Admin: 02/27/17 18:00 Dose: 325 mg Isosorbide Dinitrate (Isordil) 5 mg PO BID [facility] Last Admin: 02/27/17 19:00 Dose: 5 mg - Labs Labs: 02/28/17 07:08 02/28/17 07:08 PT 12.4 SECONDS (9.7-12.2) H 02/28/17 07:08 INR 1.1 02/28/17 07:08 APTT 26 SECONDS (21-34) 02/28/17 07:08 - Constitutional Appears: Well, Non-toxic, No Acute Distress - Head Exam Head Exam: ATRAUMATIC, NORMAL INSPECTION, NORMOCEPHALIC - Eye Exam Eye Exam: EOMI, Normal appearance, PERRL - ENT Exam ENT Exam: Mucous Membranes Moist, Normal Exam - Neck Exam Neck Exam: Normal Inspection - Respiratory Exam Respiratory Exam: Clear to Ausculation Bilateral, NORMAL BREATHING PATTERN - Cardiovascular Exam Cardiovascular Exam: REGULAR RHYTHM, RRR, +S1, +S2 - GI/Abdominal Exam GI & Abdominal Exam: Soft, Normal Bowel Sounds. absent: Tenderness - Rectal Exam Rectal Exam: Deferred - Extremities Exam Extremities Exam: Full ROM, Normal Capillary Refill, Normal Inspection - Neurological Exam Neurological Exam: Alert, Awake, Oriented x3 - Psychiatric Exam Psychiatric exam: Normal Affect, Normal Mood - Skin Skin Exam: Dry, Intact, Normal Color, Warm Assessment and Plan - Assessment and Plan (Free Text) Assessment: (1) Hip fracture Assessment and Plan: 02/28: Pt cleared by cardio. Pt is s/p Left hip IT fracture ORIF w/ cephalomedulary nail (short TFN) to repair left hip fracture. F/u H/H tomorrow to assess Hgb count. 02/27: will transfuse 2 units of pRBC tomorrow over 4 hours for each unit. Will pre-medicate with tylenol and benedryl 20 minutes before each transfusion to alleviate symptoms due to transfusion reaction. Dr Dariusz Kelley mistook this patient for one of his own and incorrectly ordered for this patient lovonox 40mg po. 02/27: Possible surgery wednesday, per Dr Savage Ortho consult placed- Dr. Ramirez- help appreciated Tylenol 650 mg Q6H PRN for pain Imaging: Lower Extremity CT: Comminuted mildly displaced fracture of the intertrochanteric left hip and left femoral neck. Status: Acute (2) History of angina Assessment and Plan: Patient on nitrate Isordil as home med. 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 Arora- help appreciated Will need cardio clearance prior to OR Status: Acute (3) Anemia Assessment and Plan: 02/27: 7/15: will transfuse 2 units of pRBC tomorrow over 4 hours for each unit. Will pre-medicate with tylenol and benedryl 20 minutes before each transfusion to alleviate symptoms due to transfusion reaction. H/H: 8.4/27.8, MCV 77, MCHC 30.2. Patient with microcytic anemia. Likely secondary to iron deficiency. Will check Iron studies in the AM. Status: Acute (4) Leukocytosis Assessment and Plan: 02/28: resolved Likely related to stress reaction as there is no shift. f/u CBC in the AM If WBC continues to increase, will consider further workup. Status: Acute (5) Elevated BUN Assessment and Plan: BUN 33, Cr 1.1 Start NS at 100 cc/hr Status: Acute (6) HTN (hypertension) Assessment and Plan: Start home medication of Enalapril 5 mg PO daily Status: Acute (7) Diarrhea 02/27: stool cultures, ova parasite, cdiff toxin a and b - f/u (8) Prophylactic measure Assessment and Plan: Pepcid 20 mg PO daily SCD on the right leg Contraindication for DVT prophylaxis: anemia, ortho surgery heart healthy diet Status: Acute <Edgardo Kelley - Last Filed: 02/28/17 21:41> Objective - Vital Signs/Intake and Output Vital Signs (last 24 hours): Temp Pulse Resp BP Pulse Ox 99.9 F H 93 H 20 158/78 H 98 02/28/17 15:39 02/28/17 15:39 02/28/17 15:39 02/28/17 15:39 02/28/17 15:39 - Medications Medications: Current Medications Acetaminophen (Tylenol 325mg Tab) 650 mg PO Q6 PRN PRN Reason: Pain, Mild (1-3) Clonazepam (Klonopin) 1.5 mg PO HS [facility] Last Admin: 02/27/17 22:22 Dose: 1.5 mg Enalapril Maleate (Vasotec) 5 mg PO DAILY [facility] Last Admin: 02/28/17 12:46 Dose: 5 mg Famotidine (Pepcid) 20 mg PO DAILY [facility] Last Admin: 02/28/17 12:41 Dose: 20 mg Ferrous Sulfate (Feosol) 325 mg PO BID [facility] Last Admin: 02/28/17 17:57 Dose: 325 mg Isosorbide Dinitrate (Isordil) 5 mg PO BID [facility] Last Admin: 02/28/17 17:57 Dose: 5 mg Morphine Sulfate (Morphine) 1 mg IV Q6 PRN PRN Reason: Pain, severe (8-10) Oxycodone/Acetaminophen (Percocet 5/325 Mg Tab) 1 tab PO Q6H PRN PRN Reason: Pain, moderate (4-7) Stop: 03/03/17 11:51 Last Admin: 02/28/17 20:21 Dose: 1 tab - Labs Labs: 02/28/17 07:08 02/28/17 07:08 PT 12.4 SECONDS (9.7-12.2) H 02/28/17 07:08 INR 1.1 02/28/17 07:08 APTT 26 SECONDS (21-34) 02/28/17 07:08 Attending/Attestation - Attestation I have personally seen and examined this patient.: Yes I have fully participated in the care of the patient.: Yes I have reviewed all pertinent clinical information, including history, physical exam and plan: Yes Notes (Text): 02/28/17 21:31 Patient was seen and examined at 1 PM 02/28/17 For pain: Percocet 5/325 mg PO Q6H PRN Moderate Pain and Morphine 1 mg IV Q6H PRN Severe Pain. F/U CBC at 6 PM and 12 AM tonight and as part of morning labs 03/01/17 and if HgB /Hct are stable then start Lovenox 40 mg SC 1x/day for DVT Prophylaxis. Acute Renal Insufficiency: improved so NS was discontinued Hx Diarrhea on 02/27/17: F/U Stool Studies Incentive Spirometry has been ordered. Please also note that upon admission of this patient Medicine Team had ordered that anticoagulation was contraindicated for DVT prophylaxis considering the Anemia and the pending surgery. However, it appears that Dr. Yeny Kelley, who thought that this was his patient, ordered Lovenox to be given to patient at 10 PM last night 02/27/17 and was given by nurse at that time. Learning of this I notified Nurse Jaimes who notified risk management through the [employer]. Edgardo Kelley D.O.
[2017-02-28] MEDS ORDERED: Neostigmine Methylsulfate 3mg/3ml Syringe IV ONE (09:48)
--- NOTE | 2017-02-28 13:21 | PCM.SURG1 ---
Surgeon's Initial Post Op Note - Surgeon's Notes Surgeon: Marisel Mayen MD Purchasing Analyst: Mayo Cherry MD Type of Anesthesia: General Endo Pre-Operative Diagnosis: Left hip displaced intertrochanteric hip fracture Operative Findings: Left hip displaced intertrochanteric hip fracture Post-Operative Diagnosis: Left hip displaced intertrochanteric hip fracture Operation Performed: Left hip IT fracture ORIF w/ cephalomedulary nail (short TFN) Specimen/Specimens Removed: specimen = none. complications= none. Implants= Synthes short TFNA (11mm diam), 38mm distal interlocking screw, 90mm length helical blade Estimated Blood Loss: EBL {In ML}: 50 Blood Products Given: N/A Drains Used: No Drains Post-Op Condition: Good Date of Surgery/Procedure: 02/28/17 Time of Surgery/Procedure: 10:00
[2017-02-28] MEDS: Oxycodone/Acetaminophen 5/325 mg Tab PO PRN (20:21)
[2017-02-28 23:09] LABS: BASO % 0.4 % (0.0-2.0); EOS % 0.1 % (0.0-4.0); HEMOGLOBIN 9.5 g/dL (11.0-16.0); LYMPH # 1.8 K/uL (1.0-4.3); LYMPH % 17.6 % (20.0-40.0); MEAN CELL VOLUME 77.2 fL (81.0-99.0); MEAN CORPUSCULAR HEMOGLOBIN 24.9 pg (27.0-31.0); MEAN CORPUSCULAR HGB CONC 32.3 g/dL (33.0-37.0); MEAN PLATELET VOLUME 7.9 fL (7.2-11.7); MONO # 0.7 K/uL (0.0-0.8); MONO % 7.3 % (0.0-10.0); NEUT # 7.5 K/uL (1.8-7.0); NEUT % 74.6 % (50.0-75.0); NRBC % 0.1 % (0.0-2.0); RBC 3.81 Mil/uL (3.80-5.20); RED CELL DISTRIBUTION WIDTH 18.9 % (11.5-14.5)
[2017-03-01 06:09] LABS: BASO % 0.4 % (0.0-2.0); EOS # 0.1 K/uL (0.0-0.7); EOS % 1.4 % (0.0-4.0); HEMOGLOBIN 9.5 g/dL (11.0-16.0); LYMPH # 1.8 K/uL (1.0-4.3); LYMPH % 19.6 % (20.0-40.0); MEAN CORPUSCULAR HEMOGLOBIN 24.7 pg (27.0-31.0); MEAN CORPUSCULAR HGB CONC 31.6 g/dL (33.0-37.0); MEAN PLATELET VOLUME 7.9 fL (7.2-11.7); MONO # 0.7 K/uL (0.0-0.8); MONO % 7.5 % (0.0-10.0); NEUT # 6.6 K/uL (1.8-7.0); NEUT % 71.1 % (50.0-75.0); RBC 3.84 Mil/uL (3.80-5.20); RED CELL DISTRIBUTION WIDTH 19.1 % (11.5-14.5); WHITE BLOOD COUNT 9.3 K/uL (4.8-10.8)
[2017-03-01 06:22] LABS: ALB/GLOB RATIO 0.8 (1.0-2.1); ALBUMIN 2.8 g/dL (3.5-5.0); ALT/SGPT 41 U/L (9-52); AST/SGOT 49 U/L (14-36); BLOOD UREA NITROGEN 15 mg/dL (7-17); CALCIUM 7.6 mg/dl (8.6-10.4); GFR AFRICAN-AMERICAN > 60; GFR NON-AFRICAN AMERICAN 53; MAGNESIUM 1.6 mg/dL (1.6-2.3)
[2017-03-01] MEDS: Oxycodone/Acetaminophen 5/325 mg Tab PO PRN (07:02)
--- NOTE | 2017-03-01 08:06 | CP.PCM.PN ---
Subjective - Date & Time of Evaluation Date of Evaluation: 03/01/17 Time of Evaluation: 08:00 - Subjective Subjective: Cardiology progress note. Attending: Dr. Arora Pt seen and examined at bedside. No acute distress. No events overnight. Pt complains of mild headache. No fevers, chills, vomiting, diarrhea. Echo shows EF of 60 percent Objective - Vital Signs/Intake and Output Vital Signs (last 24 hours): Temp Pulse Resp BP Pulse Ox 98.3 F 84 20 121/64 96 03/01/17 04:21 03/01/17 04:21 03/01/17 04:21 03/01/17 04:21 02/28/17 23:23 - Medications Medications: Current Medications Acetaminophen (Tylenol 325mg Tab) 650 mg PO Q6 PRN PRN Reason: Pain, Mild (1-3) Clonazepam (Klonopin) 1.5 mg PO HS [facility] Last Admin: 02/27/17 22:22 Dose: 1.5 mg Enalapril Maleate (Vasotec) 5 mg PO DAILY [facility] Last Admin: 02/28/17 12:46 Dose: 5 mg Famotidine (Pepcid) 20 mg PO DAILY [facility] Last Admin: 02/28/17 12:41 Dose: 20 mg Ferrous Sulfate (Feosol) 325 mg PO BID [facility] Last Admin: 02/28/17 17:57 Dose: 325 mg Isosorbide Dinitrate (Isordil) 5 mg PO BID [facility] Last Admin: 02/28/17 17:57 Dose: 5 mg Morphine Sulfate (Morphine) 1 mg IV Q6 PRN PRN Reason: Pain, severe (8-10) Oxycodone/Acetaminophen (Percocet 5/325 Mg Tab) 1 tab PO Q6H PRN PRN Reason: Pain, moderate (4-7) Stop: 03/03/17 11:51 Last Admin: 03/01/17 07:02 Dose: 1 tab - Labs Labs: 03/01/17 05:56 03/01/17 05:56 PT 12.4 SECONDS (9.7-12.2) H 02/28/17 07:08 INR 1.1 02/28/17 07:08 APTT 26 SECONDS (21-34) 02/28/17 07:08 - Constitutional Appears: Non-toxic, No Acute Distress - Head Exam Head Exam: ATRAUMATIC, NORMAL INSPECTION, NORMOCEPHALIC - Eye Exam Eye Exam: EOMI - ENT Exam ENT Exam: Mucous Membranes Moist - Neck Exam Neck Exam: Full ROM, Normal Inspection - Respiratory Exam Respiratory Exam: NORMAL BREATHING PATTERN. absent: Respiratory Distress - Cardiovascular Exam Cardiovascular Exam: +S1, +S2 - GI/Abdominal Exam GI & Abdominal Exam: Soft, Normal Bowel Sounds. absent: Tenderness - Extremities Exam Extremities Exam: absent: Full ROM, Normal Inspection Additional comments: Dressing to left hip clean/dry/intact; hip moderate tenderness to palpation Varicose veins b/l lower extremities - Neurological Exam Neurological Exam: Alert, Awake, Oriented x3 - Psychiatric Exam Psychiatric exam: Normal Affect, Normal Mood - Skin Skin Exam: Dry, Intact, Normal Color, Warm Assessment and Plan - Assessment and Plan (Free Text) Assessment: This is an 87 yo female with past medical hx of HTN, TIA X2, hemorrhoids, GERD, osteoporosis presented to ER s/p witnessed mechanical fall. Hip fracture seen on CT Cardiology consulted for risk stratification -f/u Echo>>> shows lv borderline dilated, transmitral grade I abnormal relaxation pattern, ef of 60 percent (please see full report) -EKG: NSR @ 69bpm -Continue current medical management -continue enalapril 5 mg po daily -Isordil 5mg po bid -morphine and percocet for pain -pt is s/p left hip ORIF with cephalomedullary nail -Dr. Perea following -Cardiac diet dw Dr. Arora
--- NOTE | 2017-03-01 11:24 | CP.PCM.PN ---
Subjective - Date & Time of Evaluation Date of Evaluation: 03/01/17 Time of Evaluation: 11:21 - Subjective Subjective: Patient states she has pain in her hip and thigh. Denies CP/SOB/n/v. Complains of dizziness. Objective - Vital Signs/Intake and Output Vital Signs (last 24 hours): Temp Pulse Resp BP Pulse Ox 98.2 F 71 18 135/78 96 03/01/17 07:45 03/01/17 07:45 03/01/17 07:45 03/01/17 10:40 03/01/17 07:45 Intake and Output: 03/01/17 03/01/17 06:59 18:59 Intake Total 200 Balance 200 - Medications Medications: Current Medications Acetaminophen (Tylenol 325mg Tab) 650 mg PO Q6 PRN PRN Reason: Pain, Mild (1-3) Clonazepam (Klonopin) 1.5 mg PO HS [facility] Last Admin: 02/27/17 22:22 Dose: 1.5 mg Enalapril Maleate (Vasotec) 5 mg PO DAILY [facility] Last Admin: 03/01/17 10:40 Dose: 5 mg Famotidine (Pepcid) 20 mg PO DAILY [facility] Last Admin: 03/01/17 10:40 Dose: 20 mg Ferrous Sulfate (Feosol) 325 mg PO BID [facility] Last Admin: 03/01/17 10:40 Dose: 325 mg Isosorbide Dinitrate (Isordil) 5 mg PO BID [facility] Last Admin: 02/28/17 17:57 Dose: 5 mg Morphine Sulfate (Morphine) 1 mg IV Q6 PRN PRN Reason: Pain, severe (8-10) Oxycodone/Acetaminophen (Percocet 5/325 Mg Tab) 1 tab PO Q6H PRN PRN Reason: Pain, moderate (4-7) Stop: 03/03/17 11:51 Last Admin: 03/01/17 07:02 Dose: 1 tab - Labs Labs: 03/01/17 05:56 03/01/17 05:56 PT 12.4 SECONDS (9.7-12.2) H 02/28/17 07:08 INR 1.1 02/28/17 07:08 APTT 26 SECONDS (21-34) 02/28/17 07:08 - Extremities Exam Additional comments: LLE: dressing intact. No drainage noted. Thigh swollen and tender, but soft. + ROM ankle DF/PF, toes flex/ext. +DP pulse, sensation intact, calves soft NT neg homans. Assessment and Plan (1) Closed intertrochanteric fracture of left femur Assessment & Plan: POD#1 s/p left hip ORIF/nailing -PT/OT, TTWB per Dr. Mantilla -VTE proph, ok to start lovenox/heparin as per medical team, ok to resume aspirin -venodynes -ice -d/c planning -d/w Dr. Mantilla, agrees with above Status: Acute (2) Acute blood loss anemia Assessment & Plan: from fracture s/p PRBC transfusion continue to monitor Status: Acute
--- NOTE | 2017-03-01 13:08 | CARD ---
APPROVED REPORT EKG Measurement Heart [id number] <Conclusion> Normal sinus rhythm Normal ECG
[2017-03-01] MEDS: Enoxaparin 40 mg Syringe SC SCH (14:49)
--- NOTE | 2017-03-01 15:40 | RAD ---
PROCEDURE: Intraoperative fluoroscopy HISTORY: LT. HIP FX. COMPARISON: Not available TECHNIQUE: Intraoperative fluoroscopy was provided for ORIF left intertrochanteric fracture. Total time of fluoroscopy was 342.9 seconds. FINDINGS: Multiple fluoroscopic spot films are submitted. Films are on file for review. IMPRESSION: Fluoroscopy provided.
[2017-03-01 17:12] LABS: HDL CHOLESTEROL 34 mg/dL (30-70)
[2017-03-01 17:22] LABS: LDL CHOLESTEROL 41 mg/dL (0-129)
--- NOTE | 2017-03-01 18:14 | CP.PCM.PN ---
Subjective - Date & Time of Evaluation Date of Evaluation: 03/01/17 Time of Evaluation: 07:30 - Subjective Subjective: PGY1- Medicine Note- Dr. Shin's service Patient seen and examined at bedside and in no acute distress. Patient is post op day 1 post open reduction and internal fixation of left hip. Patient complains of some left hip pain. Patient has not had a bowel movement in two days. Patient says she is otherwise feeling okay. She denies headache, chest pain, shortness of breath, abdominal pain, nausea, vomiting, or diarrhea. Patient states she is able to eat some today. Objective - Vital Signs/Intake and Output Vital Signs (last 24 hours): Temp Pulse Resp BP Pulse Ox 99 F 80 20 101/50 L 97 03/01/17 15:00 03/01/17 15:00 03/01/17 15:00 03/01/17 15:00 03/01/17 15:00 Intake and Output: 03/01/17 03/01/17 06:59 18:59 Intake Total 200 Balance 200 - Medications Medications: Current Medications Acetaminophen (Tylenol 325mg Tab) 650 mg PO Q6 PRN PRN Reason: Pain, Mild (1-3) Last Admin: 03/01/17 14:42 Dose: 650 mg Aspirin (Ecotrin) 81 mg PO DAILY [facility] Last Admin: 03/01/17 14:46 Dose: 81 mg Clonazepam (Klonopin) 1.5 mg PO HS [facility] Last Admin: 02/27/17 22:22 Dose: 1.5 mg Docusate Sodium (Colace) 100 mg PO BID [facility] Enalapril Maleate (Vasotec) 5 mg PO DAILY [facility] Last Admin: 03/01/17 10:40 Dose: 5 mg Enoxaparin Sodium (Lovenox) 40 mg SC DAILY [facility] Last Admin: 03/01/17 14:49 Dose: 40 mg Famotidine (Pepcid) 20 mg PO DAILY [facility] Last Admin: 03/01/17 10:40 Dose: 20 mg Ferrous Sulfate (Feosol) 325 mg PO BID [facility] Last Admin: 03/01/17 10:40 Dose: 325 mg Isosorbide Dinitrate (Isordil) 5 mg PO BID [facility] Last Admin: 03/01/17 10:00 Dose: 5 mg Morphine Sulfate (Morphine) 1 mg IV Q6 PRN PRN Reason: Pain, severe (8-10) Oxycodone/Acetaminophen (Percocet 5/325 Mg Tab) 1 tab PO Q6H PRN PRN Reason: Pain, moderate (4-7) Stop: 03/03/17 11:51 Last Admin: 03/01/17 07:02 Dose: 1 tab Rosuvastatin Calcium (Crestor) 2.5 mg PO HS [facility] - Labs Labs: 03/01/17 05:56 03/01/17 05:56 PT 12.4 SECONDS (9.7-12.2) H 02/28/17 07:08 INR 1.1 02/28/17 07:08 APTT 26 SECONDS (21-34) 02/28/17 07:08 - Constitutional Appears: Well, Non-toxic, No Acute Distress - Head Exam Head Exam: ATRAUMATIC, NORMAL INSPECTION, NORMOCEPHALIC - Eye Exam Eye Exam: Conjunctival injection - ENT Exam ENT Exam: Mucous Membranes Moist, Normal Exam - Neck Exam Neck Exam: Full ROM, Normal Inspection. absent: Lymphadenopathy - Respiratory Exam Respiratory Exam: Clear to Ausculation Bilateral, NORMAL BREATHING PATTERN. absent: Rales, Rhonchi, Wheezes, Respiratory Distress, Stridor - Cardiovascular Exam Cardiovascular Exam: REGULAR RHYTHM, RRR. absent: Gallop, Rubs, Murmur - GI/Abdominal Exam GI & Abdominal Exam: Soft, Normal Bowel Sounds. absent: Distended, Firm, Guarding, Rigid, Tenderness - Extremities Exam Extremities Exam: Normal Inspection Additional comments: Left hip dressing dry, clean, intact. No drainage noted. Thigh swollen and tender. - Back Exam Back Exam: NORMAL INSPECTION - Neurological Exam Neurological Exam: Alert, Awake, Oriented x3 - Psychiatric Exam Psychiatric exam: Normal Affect, Normal Mood - Skin Skin Exam: Intact, Normal Color, Warm Assessment and Plan - Assessment and Plan (Free Text) Assessment: (1) Hip fracture Assessment and Plan: 03/01: Pt POD #1 s/p left hip open reduction and internal fixation, H/H: 9.01/12 02/28: Pt cleared by cardio. Pt is s/p Left hip IT fracture ORIF w/ cephalomedulary nail (short TFN) to repair left hip fracture. F/u H/H tomorrow to assess Hgb count. 02/27: will transfuse 2 units of pRBC tomorrow over 4 hours for each unit. Will pre-medicate with tylenol and benedryl 20 minutes before each transfusion to alleviate symptoms due to transfusion reaction. Dr Dariusz Kelley mistook this patient for one of his own and incorrectly ordered for this patient lovonox 40mg po. 02/27: Possible surgery wednesday, per Dr Savage Ortho consult placed- Dr. Ramirez- help appreciated Tylenol 650 mg Q6H PRN for pain Imaging: Lower Extremity CT: Comminuted mildly displaced fracture of the intertrochanteric left hip and left femoral neck. Status: Acute (2) History of angina Assessment and Plan: Patient on nitrate Isordil as home med. 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 Arora- help appreciated, cleared for surgery Crestor 2.5 mg po daily started on 03/01 Aspirin 81 mg po daily f/u lipid panel Status: Acute (3) Anemia Assessment and Plan: 03/01: H/H stable at 9.5/30 02/27: will transfuse 2 units of pRBC tomorrow over 4 hours for each unit. Will pre-medicate with tylenol and benedryl 20 minutes before each transfusion to alleviate symptoms due to transfusion reaction. H/H: 8.4/27.8, MCV 77, MCHC 30.2. Patient with microcytic anemia. Likely secondary to iron deficiency. Will check Iron studies in the AM. Status: Acute (4) Leukocytosis Assessment and Plan: 02/28: resolved Likely related to stress reaction as there is no shift. If WBC continues to increase, will consider further workup. Status: Resolved (5) Elevated BUN Assessment and Plan: resolved, BUN: 15, Cr:1, continue to monitor labs BUN 33, Cr 1.1 Status: resolved (6) HTN (hypertension) Assessment and Plan: Start home medication of Enalapril 5 mg PO daily Status: Acute (7) Constipation 03/01: patient has had no bm for 2 days colace 100mg BID started 02/27: patient having loose stools-stool cultures, ova parasite, cdiff toxin a and b - f/u (8) Prophylactic measure Assessment and Plan: Pepcid 20 mg PO daily Lovenox 40 mg sc daily heart healthy diet Status: Acute
[2017-03-01] MEDS: Rosuvastatin Calcium 2.5 mg Tab PO SCH (22:10)
[2017-03-02 07:23] LABS: BASO % 0.4 % (0.0-2.0); EOS # 0.5 K/uL (0.0-0.7); EOS % 5.5 % (0.0-4.0); HEMOGLOBIN 9.3 g/dL (11.0-16.0); LYMPH # 1.6 K/uL (1.0-4.3); LYMPH % 18.3 % (20.0-40.0); MEAN CORPUSCULAR HEMOGLOBIN 25.1 pg (27.0-31.0); MEAN CORPUSCULAR HGB CONC 32.2 g/dL (33.0-37.0); MEAN PLATELET VOLUME 7.9 fL (7.2-11.7); MONO # 0.6 K/uL (0.0-0.8); MONO % 6.9 % (0.0-10.0); NEUT # 6.1 K/uL (1.8-7.0); NEUT % 68.9 % (50.0-75.0); RBC 3.69 Mil/uL (3.80-5.20); RED CELL DISTRIBUTION WIDTH 19.3 % (11.5-14.5); WHITE BLOOD COUNT 8.8 K/uL (4.8-10.8)
[2017-03-02 07:29] LABS: ALBUMIN 2.8 g/dL (3.5-5.0)
[2017-03-02 07:31] LABS: GFR AFRICAN-AMERICAN > 60; GFR NON-AFRICAN AMERICAN 53
[2017-03-02 07:32] LABS: ALB/GLOB RATIO 0.8 (1.0-2.1); ALT/SGPT 39 U/L (9-52); AST/SGOT 26 U/L (14-36); BLOOD UREA NITROGEN 17 mg/dL (7-17)
[2017-03-02 07:33] LABS: CALCIUM 8.1 mg/dl (8.6-10.4); HDL CHOLESTEROL 32 mg/dL (30-70); MAGNESIUM 2.1 mg/dL (1.6-2.3)
[2017-03-02 07:44] LABS: LDL CHOLESTEROL 47 mg/dL (0-129)
--- NOTE | 2017-03-02 08:10 | CP.PCM.PN ---
Subjective - Date & Time of Evaluation Date of Evaluation: 03/02/17 Time of Evaluation: 08:08 - Subjective Subjective: Patient complaining of r>L knee pain today, especially after PT. Denies CP/SOB/ dizziness/numbness/tingling. SHe says she has arthritis. Objective - Vital Signs/Intake and Output Vital Signs (last 24 hours): Temp Pulse Resp BP Pulse Ox 98.2 F 69 17 111/59 L 98 03/02/17 07:15 03/02/17 07:15 03/02/17 07:15 03/02/17 07:15 03/02/17 07:15 Intake and Output: 03/02/17 03/02/17 06:59 18:59 Intake Total 150 Output Total 300 Balance -150 - Medications Medications: Current Medications Acetaminophen (Tylenol 325mg Tab) 650 mg PO Q6 PRN PRN Reason: Pain, Mild (1-3) Last Admin: 03/02/17 01:23 Dose: 650 mg Aspirin (Ecotrin) 81 mg PO DAILY [facility] Last Admin: 03/01/17 14:46 Dose: 81 mg Clonazepam (Klonopin) 1.5 mg PO HS [facility] Last Admin: 03/01/17 22:10 Dose: 1.5 mg Docusate Sodium (Colace) 100 mg PO BID [facility] Last Admin: 03/01/17 18:26 Dose: 100 mg Enalapril Maleate (Vasotec) 5 mg PO DAILY [facility] Last Admin: 03/01/17 10:40 Dose: 5 mg Enoxaparin Sodium (Lovenox) 40 mg SC DAILY [facility] Last Admin: 03/01/17 14:49 Dose: 40 mg Famotidine (Pepcid) 20 mg PO DAILY [facility] Last Admin: 03/01/17 10:40 Dose: 20 mg Ferrous Sulfate (Feosol) 325 mg PO BID [facility] Last Admin: 03/01/17 18:26 Dose: 325 mg Isosorbide Dinitrate (Isordil) 5 mg PO BID [facility] Last Admin: 03/01/17 18:26 Dose: 5 mg Morphine Sulfate (Morphine) 1 mg IV Q6 PRN PRN Reason: Pain, severe (8-10) Oxycodone/Acetaminophen (Percocet 5/325 Mg Tab) 1 tab PO Q6H PRN PRN Reason: Pain, moderate (4-7) Stop: 03/03/17 11:51 Last Admin: 03/01/17 07:02 Dose: 1 tab Rosuvastatin Calcium (Crestor) 2.5 mg PO HS [facility] Last Admin: 03/01/17 22:10 Dose: 2.5 mg - Labs Labs: 03/02/17 07:10 03/02/17 07:10 PT 12.4 SECONDS (9.7-12.2) H 02/28/17 07:08 INR 1.1 02/28/17 07:08 APTT 26 SECONDS (21-34) 02/28/17 07:08 - Constitutional Appears: Well, No Acute Distress - Extremities Exam Additional comments: RIght knee: small jt effusion, not warm, no erythema or ecchymosis, generalized moderate TTP to knee Left thigh: no increased swelling, moderate left knee joint effusion, calves soft NT neg homans, dressing intact, dry mild TTP left knee/thigh +DP/PT pulse +ROM ankle/toes Assessment and Plan (1) Closed intertrochanteric fracture of left femur Assessment & Plan: POD2 s/p left hip troch nailing -VTE proph -PT /OT -ice -encourage oob -d/c planning Status: Acute (2) Acute blood loss anemia Assessment & Plan: stable Status: Acute (3) Knee pain, bilateral Assessment & Plan: f/u xrays likely left kne OA exacerbation due to PT and limited WB on left Status: Acute
[2017-03-02] MEDS: Enoxaparin 40 mg Syringe SC SCH (09:31)
--- NOTE | 2017-03-02 12:43 | RAD ---
PROCEDURE: Bilateral Knee Radiographs. HISTORY: bilateral knee pain COMPARISON: None. FINDINGS: BONES: There is no acute displaced fracture or bone destruction. Bone alignment is normal. There is diffuse bone demineralization. JOINTS: There is severe tricompartmental degenerative osteoarthrosis with reduced joint spaces, marginal osteophytes and chondrocalcinosis, worse in the medial compartments and on the left. SOFT TISSUES: The periarticular soft tissues are normal. JOINT EFFUSION: There are small suprapatellar joint effusions, worse on the left. OTHER FINDINGS: None. IMPRESSION: No acute displaced fracture or dislocation. Severe tricompartmental degenerative osteoarthrosis, worse in the medial compartment and on the left.
--- NOTE | 2017-03-02 14:35 | CP.PCM.PN ---
Subjective - Date & Time of Evaluation Date of Evaluation: 03/02/17 Time of Evaluation: 07:30 - Subjective Subjective: PGY1 - Medicine Note- Dr. Shin's Service Patient seen and examined at bedside and in no acute distress. Patient says her left hip is not bothering her at all. Patient complains of bilateral knee pain which she has had many times in the past and contributes to osteoporosis. As per family members, Indomethacin helps her knee pain at home. Patient denies shortness of breath, chest pain, abdominal pain, nausea, vomiting, diarrhea. Patient had one small bowel movement yesterday. Objective - Vital Signs/Intake and Output Vital Signs (last 24 hours): Temp Pulse Resp BP Pulse Ox 98.2 F 69 17 120/61 98 03/02/17 07:15 03/02/17 07:15 03/02/17 07:15 03/02/17 09:30 03/02/17 07:15 Intake and Output: 03/02/17 03/02/17 06:59 18:59 Intake Total 150 Output Total 300 Balance -150 - Medications Medications: Current Medications Acetaminophen (Tylenol 325mg Tab) 650 mg PO Q6 PRN PRN Reason: Pain, Mild (1-3) Last Admin: 03/02/17 11:59 Dose: 650 mg Aspirin (Ecotrin) 81 mg PO DAILY [facility] Last Admin: 03/02/17 09:31 Dose: 81 mg Clonazepam (Klonopin) 1.5 mg PO HS [facility] Last Admin: 03/01/17 22:10 Dose: 1.5 mg Docusate Sodium (Colace) 100 mg PO BID [facility] Last Admin: 03/02/17 09:28 Dose: 100 mg Enalapril Maleate (Vasotec) 5 mg PO DAILY [facility] Last Admin: 03/02/17 09:30 Dose: 5 mg Enoxaparin Sodium (Lovenox) 40 mg SC DAILY [facility] Last Admin: 03/02/17 09:31 Dose: 40 mg Famotidine (Pepcid) 20 mg PO DAILY [facility] Last Admin: 03/02/17 09:31 Dose: 20 mg Ferrous Sulfate (Feosol) 325 mg PO BID [facility] Last Admin: 03/02/17 09:31 Dose: 325 mg Indomethacin (Indocin) 100 mg PO DAILY [facility] Isosorbide Dinitrate (Isordil) 5 mg PO BID [facility] Last Admin: 03/02/17 09:31 Dose: 5 mg Morphine Sulfate (Morphine) 1 mg IV Q6 PRN PRN Reason: Pain, severe (8-10) Oxycodone/Acetaminophen (Percocet 5/325 Mg Tab) 1 tab PO Q6H PRN PRN Reason: Pain, moderate (4-7) Stop: 03/03/17 11:51 Last Admin: 03/01/17 07:02 Dose: 1 tab Rosuvastatin Calcium (Crestor) 2.5 mg PO [facility] Last Admin: 03/01/17 22:10 Dose: 2.5 mg - Labs Labs: 03/02/17 07:10 03/02/17 07:10 PT 12.4 SECONDS (9.7-12.2) H 02/28/17 07:08 INR 1.1 02/28/17 07:08 APTT 26 SECONDS (21-34) 02/28/17 07:08 - Constitutional Appears: Well, Non-toxic, No Acute Distress - Head Exam Head Exam: ATRAUMATIC, NORMAL INSPECTION, NORMOCEPHALIC - Eye Exam Eye Exam: EOMI, Normal appearance, PERRL Pupil Exam: NORMAL ACCOMODATION, PERRL - ENT Exam ENT Exam: Mucous Membranes Moist, Normal Exam - Neck Exam Neck Exam: Full ROM, Normal Inspection. absent: Lymphadenopathy - Respiratory Exam Respiratory Exam: Clear to Ausculation Bilateral, NORMAL BREATHING PATTERN. absent: Rales, Rhonchi, Wheezes, Respiratory Distress, Stridor - Cardiovascular Exam Cardiovascular Exam: REGULAR RHYTHM, RRR. absent: Gallop, Rubs, Murmur - GI/Abdominal Exam GI & Abdominal Exam: Soft, Normal Bowel Sounds. absent: Distended, Guarding, Rigid - Extremities Exam Extremities Exam: Tenderness Additional comments: left hip dressing clean, intact, dry tender to the touch both knees tender to the touch - Back Exam Back Exam: NORMAL INSPECTION - Neurological Exam Neurological Exam: Alert, Awake, Oriented x3 - Psychiatric Exam Psychiatric exam: Normal Affect, Normal Mood - Skin Skin Exam: Intact, Normal Color, Warm Assessment and Plan - Assessment and Plan (Free Text) Assessment: (1) Fever Assessment and Plan: pod #2, fever of 100.8 at 1:23 am ddx: 1. uti -f/u u/a, u/c 2. pneumonia - f/u chest xray Status: Acute (2) Hip fracture Assessment and Plan: 03/01: Pt POD #1 s/p left hip open reduction and internal fixation, H/H: 9.5/30 02/28: Pt cleared by cardio. Pt is s/p Left hip IT fracture ORIF w/ cephalomedulary nail (short TFN) to repair left hip fracture. F/u H/H tomorrow to assess Hgb count. 02/27: will transfuse 2 units of pRBC tomorrow over 4 hours for each unit. Will pre-medicate with tylenol and benedryl 20 minutes before each transfusion to alleviate symptoms due to transfusion reaction. Dr Dariusz Kelley mistook this patient for one of his own and incorrectly ordered for this patient lovonox 40mg po. 02/27: Possible surgery wednesday, per Dr Savage Ortho consult placed- Dr. Ramirez- bianca appreciated Tylenol 650 mg Q6H PRN for pain Imaging: Lower Extremity CT: Comminuted mildly displaced fracture of the intertrochanteric left hip and left femoral neck. Status: Acute (3) Chronic Knee Pain Assessment and Plan: Hx Osteoporosis bilateral knee pain Indomethacin 25 mg TID with meals (takes Indomethacin at home) Status: Chronic (4) History of angina Assessment and Plan: Patient on nitrate Isordil as home med. 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 Arora- help appreciated, cleared for surgery Crestor 2.5 mg po daily started on 03/01 Aspirin 81 mg po daily lipid panel: Triglycerides 108, Cholesterol 102, LDL 47, HDL 32 Status: Acute (5) Anemia Assessment and Plan: 03/02: H/H stable at 9.3/28.8 02/27: will transfuse 2 units of pRBC tomorrow over 4 hours for each unit. Will pre-medicate with tylenol and benedryl 20 minutes before each transfusion to alleviate symptoms due to transfusion reaction. H/H: 8.4/27.8, MCV 77, MCHC 30.2. Patient with microcytic anemia. Likely secondary to iron deficiency. Will check Iron studies in the AM. Status: Acute (6) Leukocytosis Assessment and Plan: 02/28: resolved Likely related to stress reaction as there is no shift. If WBC continues to increase, will consider further workup. Status: Resolved (7) Elevated BUN Assessment and Plan: resolved, BUN: 15, Cr:1, continue to monitor labs BUN 33, Cr 1.1 Status: resolved (8) HTN (hypertension) Assessment and Plan: continue home medication of Enalapril 5 mg PO daily Status: Acute (9) Constipation Assessment and Plan: 03/02: patient had small bm yesterday, continue colace 03/01: patient has had no bm for 2 days colace 100mg BID started 02/27: patient having loose stools-stool cultures, ova parasite, cdiff toxin a and b - f/u Status: Acute (10) Prophylactic measure Assessment and Plan: Pepcid 20 mg PO daily Lovenox 40 mg sc daily heart healthy diet Status: Acute
--- NOTE | 2017-03-02 16:39 | RAD ---
HISTORY: shortness of breath COMPARISON: 02/26/2017. FINDINGS: LUNGS: The lungs are clear. PLEURA: No significant pleural effusion identified, no pneumothorax apparent. CARDIOVASCULAR: The heart is normal in size. OSSEOUS STRUCTURES: No significant abnormalities. VISUALIZED UPPER ABDOMEN: Normal. OTHER FINDINGS: Retrocardiac opacity may represent a hiatal hernia. IMPRESSION: No active pulmonary disease.
[2017-03-02] MEDS: Rosuvastatin Calcium 2.5 mg Tab PO SCH (21:33)
[2017-03-02 23:12] LABS: SQUAMOUS EPITHIAL 2 /hpf (0-5); URINE AMORPHOUS SEDIMENT RARE /ul (<OCC); URINE BACTERIA RARE (<OCC); URINE BILIRUBIN NEGATIVE (NEGATIVE); URINE BLOOD NEGATIVE (NEGATIVE); URINE CLARITY Hazy (Clear); URINE COLOR Yellow (YELLOW); URINE GLUCOSE (UA) NORMAL (Normal); URINE LEUKOCYTE ESTERASE TRACE Leu/uL (Negative); URINE NITRATE NEGATIVE (NEGATIVE); URINE PROTEIN 1+ mg/dL (NEGATIVE)
[2017-03-03 07:47] LABS: BASO % 0.3 % (0.0-2.0); EOS # 0.6 K/uL (0.0-0.7); EOS % 7.5 % (0.0-4.0); HEMOGLOBIN 8.4 g/dL (11.0-16.0); LYMPH # 1.4 K/uL (1.0-4.3); LYMPH % 17.1 % (20.0-40.0); MEAN CORPUSCULAR HEMOGLOBIN 24.7 pg (27.0-31.0); MEAN CORPUSCULAR HGB CONC 31.2 g/dL (33.0-37.0); MEAN PLATELET VOLUME 7.8 fL (7.2-11.7); MONO # 0.6 K/uL (0.0-0.8); MONO % 7.4 % (0.0-10.0); NEUT # 5.6 K/uL (1.8-7.0); NEUT % 67.7 % (50.0-75.0); RBC 3.4 Mil/uL (3.80-5.20); RED CELL DISTRIBUTION WIDTH 19.6 % (11.5-14.5); WHITE BLOOD COUNT 8.2 K/uL (4.8-10.8)
[2017-03-03 07:58] LABS: ALBUMIN 2.7 g/dL (3.5-5.0)
[2017-03-03 08:01] LABS: ALB/GLOB RATIO 0.8 (1.0-2.1); AST/SGOT 28 U/L (14-36); GFR AFRICAN-AMERICAN > 60; GFR NON-AFRICAN AMERICAN 53
[2017-03-03 08:02] LABS: ALT/SGPT 37 U/L (9-52); BLOOD UREA NITROGEN 18 mg/dL (7-17); CALCIUM 8.1 mg/dl (8.6-10.4)
[2017-03-03 08:03] LABS: MAGNESIUM 2.1 mg/dL (1.6-2.3)
[2017-03-03] MEDS: Enoxaparin 40 mg Syringe SC SCH (09:22)
--- NOTE | 2017-03-03 09:46 | CP.PCM.PN ---
Subjective - Date & Time of Evaluation Date of Evaluation: 03/03/17 Time of Evaluation: 09:43 - Subjective Subjective: Patient with hip pain, continued knee pain R>L. TOlerating PT well. Objective - Vital Signs/Intake and Output Vital Signs (last 24 hours): Temp Pulse Resp BP Pulse Ox 98 F 61 20 106/83 98 03/03/17 07:00 03/03/17 07:00 03/03/17 07:00 03/03/17 09:19 03/03/17 07:00 Intake and Output: 03/03/17 03/03/17 06:59 18:59 Intake Total 600 Output Total 400 Balance 200 - Medications Medications: Current Medications Acetaminophen (Tylenol 325mg Tab) 650 mg PO Q6 PRN PRN Reason: Pain, Mild (1-3) Last Admin: 03/02/17 11:59 Dose: 650 mg Aspirin (Ecotrin) 81 mg PO DAILY [facility] Last Admin: 03/03/17 09:19 Dose: 81 mg Clonazepam (Klonopin) 1.5 mg PO HS [facility] Last Admin: 03/02/17 21:33 Dose: 1.5 mg Docusate Sodium (Colace) 100 mg PO BID [facility] Last Admin: 03/02/17 17:55 Dose: 100 mg Enalapril Maleate (Vasotec) 5 mg PO DAILY [facility] Last Admin: 03/03/17 09:19 Dose: 5 mg Enoxaparin Sodium (Lovenox) 40 mg SC DAILY [facility] Last Admin: 03/03/17 09:22 Dose: 40 mg Famotidine (Pepcid) 20 mg PO DAILY [facility] Last Admin: 03/03/17 09:19 Dose: 20 mg Ferrous Sulfate (Feosol) 325 mg PO BID [facility] Last Admin: 03/03/17 09:19 Dose: 325 mg Indomethacin (Indocin) 25 mg PO TIDPC [facility] Last Admin: 03/03/17 09:21 Dose: 25 mg Isosorbide Dinitrate (Isordil) 5 mg PO BID [facility] Last Admin: 03/02/17 17:56 Dose: 5 mg Morphine Sulfate (Morphine) 1 mg IV Q6 PRN PRN Reason: Pain, severe (8-10) Oxycodone/Acetaminophen (Percocet 5/325 Mg Tab) 1 tab PO Q6H PRN PRN Reason: Pain, moderate (4-7) Stop: 03/03/17 11:51 Last Admin: 03/01/17 07:02 Dose: 1 tab Rosuvastatin Calcium (Crestor) 2.5 mg PO HS [facility] Last Admin: 03/02/17 21:33 Dose: 2.5 mg - Labs Labs: 03/03/17 07:39 03/03/17 07:39 PT 12.4 SECONDS (9.7-12.2) H 02/28/17 07:08 INR 1.1 02/28/17 07:08 APTT 26 SECONDS (21-34) 02/28/17 07:08 - Extremities Exam Additional comments: LLE: +ROM ankle/toes, sensation intact, calves soft NT neg homans. no increased swelling, thigh soft, mod joint effusion in left, small on right, +DP pulses, no erythema, dressing dry/intact Assessment and Plan (1) Acute blood loss anemia Assessment & Plan: stable Status: Acute (2) Closed intertrochanteric fracture of left femur Assessment & Plan: POD#3 s/p left hip troch nailing -orthopedically stable for d/c -patient uninsured so will need to go home -continue VTE proph x 1 month -continue PT, walker ambulation -f/u in office of Dr. Mayen 1 week call for appointment [phone] -d/w Dr. Mayen, agrees with above Status: Acute (3) Knee pain, bilateral Assessment & Plan: Significant tricompartmental DJD with chrondrocalcinosis bilaterally, no acute fracture Status: Acute Radiology Interpretation - Radiology Interpretation #2 Interpretation: ccession No. : [id number] Patient Name / ID : MAURICE ASTORGA / [id number] Exam Date : 03/02/2017 09:18:05 ( Approved ) Study Comment : Sex / Age : F / 87Y Creator : HERB VALLEJO MD Dictator : HERB VALLEJO MD Scrap Baller : Chain Offbearer : HERB VALLEJO MD Approver2 : Report Date : 03/02/2017 12:38:22 My Comment : PROCEDURE: Bilateral Knee Radiographs. HISTORY: bilateral knee pain COMPARISON: None. FINDINGS: BONES: There is no acute displaced fracture or bone destruction. Bone alignment is normal. There is diffuse bone demineralization. JOINTS: There is severe tricompartmental degenerative osteoarthrosis with reduced joint spaces, marginal osteophytes and chondrocalcinosis, worse in the medial compartments and on the left. SOFT TISSUES: The periarticular soft tissues are normal. JOINT EFFUSION: There are small suprapatellar joint effusions, worse on the left. OTHER FINDINGS: None. IMPRESSION: No acute displaced fracture or dislocation. Severe tricompartmental degenerative osteoarthrosis, worse in the medial compartment and on the left.
[2017-03-03] MEDS ORDERED: POLYETHYLENE GLYCOL 3350 17 GM/Dose PACKET PO ONE (10:05)
--- NOTE | 2017-03-03 13:00 | CP.PCM.PN ---
<Smita Barger - Last Filed: 03/03/17 17:38> Subjective - Date & Time of Evaluation Date of Evaluation: 03/03/17 Time of Evaluation: 07:00 - Subjective Subjective: PGY1- Medicine Note- Dr. Toledo's Service Patient seen and examined sitting next to bed in chair today. Patient was able to get out of bed with help of PT and sit in the chair. Patient says her knee pain is still present today but less than yesterday. Patient says her left hip is bothering her more today. Patient did not have a bowel movement yesterday or today. As per daughter sitting at bedside patient got agitated and confused last night about 30 minutes after receiving her Klonopin. Patient denies headache, shortness of breath, chest pain, abdominal pain, nausea or vomiting. Objective - Vital Signs/Intake and Output Vital Signs (last 24 hours): Temp Pulse Resp BP Pulse Ox 98 F 61 20 106/83 98 03/03/17 07:00 03/03/17 07:00 03/03/17 07:00 03/03/17 09:19 03/03/17 07:00 Intake and Output: 03/03/17 03/03/17 06:59 18:59 Intake Total 600 Output Total 400 Balance 200 - Medications Medications: Current Medications Acetaminophen (Tylenol 325mg Tab) 650 mg PO Q6 PRN PRN Reason: Pain, Mild (1-3) Last Admin: 03/02/17 11:59 Dose: 650 mg Aspirin (Ecotrin) 81 mg PO DAILY [facility] Last Admin: 03/03/17 09:19 Dose: 81 mg Clonazepam (Klonopin) 1.5 mg PO HS [facility] Last Admin: 03/02/17 21:33 Dose: 1.5 mg Docusate Sodium (Colace) 100 mg PO TID [facility] Last Admin: 03/03/17 10:55 Dose: 100 mg Enalapril Maleate (Vasotec) 5 mg PO DAILY [facility] Last Admin: 03/03/17 09:19 Dose: 5 mg Enoxaparin Sodium (Lovenox) 40 mg SC DAILY [facility] Last Admin: 03/03/17 09:22 Dose: 40 mg Famotidine (Pepcid) 20 mg PO DAILY [facility] Last Admin: 03/03/17 09:19 Dose: 20 mg Ferrous Sulfate (Feosol) 325 mg PO BID [facility] Last Admin: 03/03/17 09:19 Dose: 325 mg Indomethacin (Indocin) 25 mg PO TIDPC [facility] Last Admin: 03/03/17 09:21 Dose: 25 mg Isosorbide Dinitrate (Isordil) 5 mg PO BID [facility] Last Admin: 03/03/17 10:55 Dose: 5 mg Morphine Sulfate (Morphine) 1 mg IV Q6 PRN PRN Reason: Pain, severe (8-10) Rosuvastatin Calcium (Crestor) 2.5 mg PO HS [facility] Last Admin: 03/02/17 21:33 Dose: 2.5 mg - Labs Labs: 03/03/17 07:39 03/03/17 07:39 PT 12.4 SECONDS (9.7-12.2) H 02/28/17 07:08 INR 1.1 02/28/17 07:08 APTT 26 SECONDS (21-34) 02/28/17 07:08 - Constitutional Appears: Well, Non-toxic, No Acute Distress - Head Exam Head Exam: ATRAUMATIC, NORMAL INSPECTION, NORMOCEPHALIC - Eye Exam Eye Exam: EOMI, Normal appearance, PERRL - ENT Exam ENT Exam: Mucous Membranes Moist, Normal Exam - Neck Exam Neck Exam: Full ROM, Normal Inspection. absent: Lymphadenopathy - Respiratory Exam Respiratory Exam: Clear to Ausculation Bilateral, NORMAL BREATHING PATTERN. absent: Rales, Rhonchi, Wheezes, Respiratory Distress, Stridor - Cardiovascular Exam Cardiovascular Exam: REGULAR RHYTHM, RRR, +S1, +S2. absent: Gallop, Rubs, Murmur - GI/Abdominal Exam GI & Abdominal Exam: Soft, Normal Bowel Sounds. absent: Distended, Firm, Rigid , Tenderness - Extremities Exam Extremities Exam: Tenderness. absent: Pedal Edema Additional comments: left hip has dry, clean, intact dressing. mild edema, soft to touch, no erythema - Back Exam Back Exam: NORMAL INSPECTION. absent: rash noted - Neurological Exam Neurological Exam: Alert, Awake, Oriented x3 - Psychiatric Exam Psychiatric exam: Normal Affect, Normal Mood - Skin Skin Exam: Intact, Normal Color, Warm Assessment and Plan - Assessment and Plan (Free Text) Assessment: (1) Fever Assessment and Plan: pod #3, afebrile for 24 hours pod #2, fever of 100.8 at 1:23 am ddx: 1. uti -u/c negative 2. pneumonia - f/u chest xray: no active pulmonary disease Status: Acute (2) Hip fracture Assessment and Plan: 03/03: Pt POD #3 H/H: 8.4/26.9 03/01: Pt POD #1 s/p left hip open reduction and internal fixation, H/H: 9.5/30 02/28: Pt cleared by cardio. Pt is s/p Left hip IT fracture ORIF w/ cephalomedulary nail (short TFN) to repair left hip fracture. F/u H/H tomorrow to assess Hgb count. 02/27: will transfuse 2 units of pRBC tomorrow over 4 hours for each unit. Will pre-medicate with tylenol and benedryl 20 minutes before each transfusion to alleviate symptoms due to transfusion reaction. Dr Dariusz Kelley mistook this patient for one of his own and incorrectly ordered for this patient lovonox 40mg po. 02/27: Possible surgery wednesday, per Dr Savage Ortho consult placed- Dr. Ramirez- help appreciated Tylenol 650 mg Q6H PRN for pain Imaging: Lower Extremity CT: Comminuted mildly displaced fracture of the intertrochanteric left hip and left femoral neck. Status: Acute (3) Chronic Knee Pain Assessment and Plan: Hx Osteoporosis bilateral knee pain Indomethacin 25 mg TID with meals (takes Indomethacin at home) Status: Chronic (4) History of angina Assessment and Plan: Patient on nitrate Isordil as home med. She used to follow up with fourth hand for many years for history of cardiac "pre-infarct" EKG - NSR at 69 bpm Echo: left ventricle borderline dilated, left ventricular diastolic function is normal, transmitral doppler flow pattern is Grade I-abnormal relaxation pattern , LVEF 60% Cardio consult placed- Dr. Arora- help appreciated, cleared for surgery Crestor 2.5 mg po daily started on 03/01 Aspirin 81 mg po daily lipid panel: Triglycerides 108, Cholesterol 102, LDL 47, HDL 32 Status: Acute (5) Anemia Assessment and Plan: 03/03: H/H dropped to 8.4/26.9, continue to monitor 03/02: H/H stable at 9.3/28.8 02/27: will transfuse 2 units of pRBC tomorrow over 4 hours for each unit. Will pre-medicate with tylenol and benedryl 20 minutes before each transfusion to alleviate symptoms due to transfusion reaction. H/H: 8.4/27.8, MCV 77, MCHC 30.2. Patient with microcytic anemia. Likely secondary to iron deficiency. Will check Iron studies in the AM. Status: Acute (6) Leukocytosis Assessment and Plan: 02/28: resolved Likely related to stress reaction as there is no shift. If WBC continues to increase, will consider further workup. Status: Resolved (7) Elevated BUN Assessment and Plan: resolved, BUN: 15, Cr:1, continue to monitor labs BUN 33, Cr 1.1 Status: resolved (8) HTN (hypertension) Assessment and Plan: continue home medication of Enalapril 5 mg PO daily Status: Acute (9) Constipation Assessment and Plan: 03/03: no bm yesterday or today, miralax given and colace increased to TID 03/02: patient had small bm yesterday, continue colace 03/01: patient has had no bm for 2 days colace 100mg BID started 02/27: patient having loose stools-stool cultures, ova parasite, cdiff toxin a and b - f/u Status: Acute (10) Prophylactic measure Assessment and Plan: Pepcid 20 mg PO daily Lovenox 40 mg sc daily heart healthy diet Status: Acute <Marta Toledo V - Last Filed: 03/04/17 07:41> Objective - Vital Signs/Intake and Output Vital Signs (last 24 hours): Temp Pulse Resp BP Pulse Ox 97.9 F 68 20 101/60 96 03/03/17 16:07 03/03/17 16:07 03/03/17 16:07 03/03/17 16:07 03/03/17 16:07 Intake and Output: 03/03/17 03/04/17 18:59 06:59 Intake Total 180 Output Total 300 Balance -120 - Medications Medications: Current Medications Acetaminophen (Tylenol 325mg Tab) 650 mg PO Q6 PRN PRN Reason: Pain, Mild (1-3) Last Admin: 03/02/17 11:59 Dose: 650 mg Aspirin (Ecotrin) 81 mg PO DAILY [facility] Last Admin: 03/03/17 09:19 Dose: 81 mg Clonazepam (Klonopin) 1 mg PO HS [facility] Last Admin: 03/03/17 21:45 Dose: 1 mg Docusate Sodium (Colace) 100 mg PO TID [facility] Last Admin: 03/03/17 18:05 Dose: 100 mg Enalapril Maleate (Vasotec) 5 mg PO DAILY [facility] Last Admin: 03/03/17 09:19 Dose: 5 mg Enoxaparin Sodium (Lovenox) 40 mg SC DAILY [facility] Last Admin: 03/03/17 09:22 Dose: 40 mg Famotidine (Pepcid) 20 mg PO DAILY [facility] Last Admin: 03/03/17 09:19 Dose: 20 mg Ferrous Sulfate (Feosol) 325 mg PO BID [facility] Last Admin: 03/03/17 18:09 Dose: 325 mg Indomethacin (Indocin) 25 mg PO TIDPC [facility] Last Admin: 03/03/17 18:06 Dose: 25 mg Isosorbide Dinitrate (Isordil) 5 mg PO BID [facility] Last Admin: 03/03/17 18:08 Dose: 5 mg Morphine Sulfate (Morphine) 1 mg IV Q6 PRN PRN Reason: Pain, severe (8-10) Rosuvastatin Calcium (Crestor) 2.5 mg PO HS [facility] Last Admin: 03/03/17 21:45 Dose: 2.5 mg - Labs Labs: 03/03/17 07:39 03/03/17 07:39 PT 12.4 SECONDS (9.7-12.2) H 02/28/17 07:08 INR 1.1 02/28/17 07:08 APTT 26 SECONDS (21-34) 02/28/17 07:08 Attending/Attestation - Attestation I have personally seen and examined this patient.: Yes I have fully participated in the care of the patient.: Yes I have reviewed all pertinent clinical information, including history, physical exam and plan: Yes Notes (Text): This is late computer entry for 03/03/17. Patient seen, examined, and case discussed with day-time resident. Patient seen in the morning with daughter at bedside. Both are very pleasant people. Patient has mild pain located and surgical site and associated right pain. Discussed with ortho PAGiselle, patient rejected from rehab secondary to lack of insurance; orthopedically stable, recommends anticoagulation such as Lovenox for s/p hip surgery. Will need to follow-up with physical therapy in terms of clearance. Patient's H/H mildly dropped from 9.3 to 8.4. Patient started on DVT ppx per orthopedic day prior. Will need to monitor H/H prior to discharge planning with Lovenox DVT ppx. Discussed with case management, possible we may need to supply Lovenox but we will need to monitor H/H. Patient afebrile for at least 24 hours. Cultures thus far are negative. Patient' s chest xray does not show pneumonia. Patient encouraged to use incentive spirometery. (1) Fever Assessment and Plan: * POD 3 * Afebrile for 24 hours * Blood culture (03/02/17): no growth after 24 hours X2 * Urine culture (03/02/17): no growth * Chest xray: no active disease (2) Hip fracture Assessment and Plan: 03/03: Pt POD #3 s/p left hip open reduction and internal fixation, H/H: 8.4/26.9 Discussed with Giselle Fernandez--Ortho-PA: * orthopedically stable for d/c * patient uninsured so will need to go home * continue VTE proph x 1 month * continue PT, walker ambulation * f/u in office of Dr. Mayen 1 week call for appointment [phone] Ortho consult placed- Dr. Ramirez- help appreciated Tylenol 650 mg Q6H PRN for pain Imaging: Lower Extremity CT: Comminuted mildly displaced fracture of the intertrochanteric left hip and left femoral neck. Status: Acute (3) Chronic Knee Pain Assessment and Plan: Hx Osteoporosis bilateral knee pain Indomethacin 25 mg TID with meals (takes Indomethacin at home) Per ortho, Significant tricompartmental DJD with chrondrocalcinosis bilaterally , no acute fracture Status: Chronic (4) History of angina Assessment and Plan: Cardio consult placed- Dr. Arora- help appreciated, cleared for surgery EKG - NSR at 69 bpm Echo: left ventricle borderline dilated, left ventricular diastolic function is normal, transmitral doppler flow pattern is Grade I-abnormal relaxation pattern , LVEF 60% Crestor 2.5 mg po daily started on 03/01/17 Aspirin 81 mg po daily lipid panel: Triglycerides 108, Cholesterol 102, LDL 47, HDL 32 Vasotec 5mg PO daily Status: Acute (5) Anemia Assessment and Plan: 03/03: H/H dropped to 8.4/26.9, continue to monitor Started on DVT ppx day prior per orthopedic Feosol 325mg PO bid Will need to monitor H/H-->orthopedic recommending Lovenox upon discharge for anti-coagulation post hip surgery Low iron; low percent iron, ferritin normal on 02/27/17 Patient given PRBC transfusion on 02/27/17 Status: Acute (6) Leukocytosis Assessment and Plan: Resolved Status: Resolved (7) Elevated BUN Assessment and Plan: mildly elevated c/w monitor Status: resolved (8) HTN (hypertension) Assessment and Plan: continue home medication of Enalapril 5 mg PO daily Monitor vital signs Status: Chronic (9) Constipation Assessment and Plan: Colace 100mg PO TID Miralax monitor for bowel movement Status: Chronic (10) Prophylactic measure Assessment and Plan: Pepcid 20 mg PO daily Lovenox 40 mg sc daily heart healthy diet Status: Acute
[2017-03-03] MEDS: Rosuvastatin Calcium 2.5 mg Tab PO SCH (21:45)
--- NOTE | 2017-03-04 00:58 | CP.PCM.CON ---
History of Present Illness - History of Present Illness History of Present Illness: 87 yo Female w/ PMH= HTN, h/o TIA x2, [facility] , presented to the ER at on 02/26/17 w/ L hip pain and inability to weight bear on Left Lower Extremity for 1 day. Pt is visiting the [facility] from [facility] to spend time with her daughters who are permanent residents here in [place]. She has been staying at her daughter' s house for the past 1 month. On 02/26/17, she had a mechanical fall from standing as she exited the bathroom and tripped on a step. She landed on her L side/hip and had immediate 10/10 L hip/femur pain and inability to get up from the floor or tolerate any WB on LLE. She was brought to the ER at via EMS and after evaluation by ER staff and review of imaging, she was dx'd with L Hip fx. She was admitted to the hospitalist service for definitive tx and orthopedic consultation was placed. I evaluated the pt as an inpt at on 02/26/17. I had a long discussion with the 2 daughters and the pt with the use of a [place] speaking tower equipment repairer phone line. I confirmed the above history. She denied any other MSK trauma or LOC/ head trauma/syncope/dizzyness. She denied CP, SOB, HAQ, N&V, fevers, chills, numbness, tingling. Review of imaging: Pelvis, Left hip x-rays on 02/26/17: +++ displaced intertrochanteric hip fracture with 3-part pattern, no extension beyond lesser trochanter CT Left hip ordered by ER on 02/26/17: +++ displaced intertrochanteric hip fracture with 3-part pattern, no extension beyond lesser trochanter, no evidence of pathologic fx Past Patient History - Past Medical History & Family History Past Medical History?: Yes - Past Social History Smoking Status: Never Smoked - CARDIAC Hx Hypertension: Yes - PULMONARY Hx Respiratory Disorders: No - NEUROLOGICAL Hx Neurological Disorder: No - HEENT Hx HEENT Problems: No - RENAL Hx Chronic Kidney Disease: No - ENDOCRINE/METABOLIC Hx Endocrine Disorders: No - HEMATOLOGICAL/ONCOLOGICAL Hx Blood Disorders: No - INTEGUMENTARY Hx Dermatological Problems: No - MUSCULOSKELETAL/RHEUMATOLOGICAL Hx Musculoskeletal Disorders: Yes Hx Falls: Yes Hx Osteoporosis: Yes - GASTROINTESTINAL Hx Gastrointestinal Disorders: No - GENITOURINARY/GYNECOLOGICAL Hx Genitourinary Disorders: No - PSYCHIATRIC Hx Substance Use: No - SURGICAL HISTORY Hx Cholecystectomy: Yes (20 years ago) - ANESTHESIA Hx Anesthesia: No Meds Allergies/Adverse Reactions: Allergies Allergy/AdvReac Type Severity Reaction Status Date / Time No Known Allergies Allergy Unverified 02/26/17 12:19 - Medications Medications: Current Medications Acetaminophen (Tylenol 325mg Tab) 650 mg PO Q6 PRN PRN Reason: Pain, Mild (1-3) Last Admin: 03/02/17 11:59 Dose: 650 mg Aspirin (Ecotrin) 81 mg PO DAILY [facility] Last Admin: 03/03/17 09:19 Dose: 81 mg Clonazepam (Klonopin) 1 mg PO HS [facility] Last Admin: 03/03/17 21:45 Dose: 1 mg Docusate Sodium (Colace) 100 mg PO TID [facility] Last Admin: 03/03/17 18:05 Dose: 100 mg Enalapril Maleate (Vasotec) 5 mg PO DAILY [facility] Last Admin: 03/03/17 09:19 Dose: 5 mg Enoxaparin Sodium (Lovenox) 40 mg SC DAILY [facility] Last Admin: 03/03/17 09:22 Dose: 40 mg Famotidine (Pepcid) 20 mg PO DAILY [facility] Last Admin: 03/03/17 09:19 Dose: 20 mg Ferrous Sulfate (Feosol) 325 mg PO BID [facility] Last Admin: 03/03/17 18:09 Dose: 325 mg Indomethacin (Indocin) 25 mg PO TIDPC [facility] Last Admin: 03/03/17 18:06 Dose: 25 mg Isosorbide Dinitrate (Isordil) 5 mg PO BID [facility] Last Admin: 03/03/17 18:08 Dose: 5 mg Morphine Sulfate (Morphine) 1 mg IV Q6 PRN PRN Reason: Pain, severe (8-10) Rosuvastatin Calcium (Crestor) 2.5 mg PO HS [facility] Last Admin: 03/03/17 21:45 Dose: 2.5 mg Physical Exam - Extremities Exam Additional comments: Right Lower Extremity: - ttp, - logroll - swelling/warmth/redness, FROM at all joints w/o pain, - instability + 5/5 motor strength hip flex/ext, knee flex/ext, ankle df/pf, toes up & down sensory intact L2-S1, TN/SPN/DPN 2+ DP, BCR all toes Left Lower Extremity: +++ ttp at GT and groin, +++ log roll, unable to tolerate any ROM at L hip, skin intact, - swelling/warmth/redness - ttp at knee and ankle/foot, FROM at ankle / foot + 5/5 motor strength ankle df/pf, toes up & down, hip and knee motor exam not done due to hip pain sensory intact L2-S1, TN/SPN/DPN 2+ DP, BCR all toes Results - Vital Signs Recent Vital Signs: Last Vital Signs Temp 97.9 F 03/03/17 16:07 Pulse 68 03/03/17 16:07 Resp 20 03/03/17 16:07 BP 101/60 03/03/17 16:07 Pulse Ox 96 03/03/17 16:07 - Labs Result Diagrams: 03/03/17 07:39 03/03/17 07:39 Labs: Laboratory Results - last 24 hr 03/03/17 03/03/17 07:39 07:39 WBC 8.2 RBC 3.40 L Hgb 8.4 L Hct 26.9 L MCV 79.0 L MCH 24.7 L MCHC 31.2 L RDW 19.6 H Plt Count 247 MPV 7.8 Neut % (Auto) 67.7 Lymph % (Auto) 17.1 L Gregg % (Auto) 7.4 Eos % (Auto) 7.5 H Baso % (Auto) 0.3 Neut # 5.6 Lymph # 1.4 Gregg # 0.6 Eos # 0.6 Baso # 0.0 Sodium 140 Potassium 3.8 Chloride 106 Carbon Dioxide 21 L Anion Gap 17 BUN 18 H Creatinine 1.0 Est GFR ( Amer) > 60 Est GFR (Non-Af Amer) 53 Random Glucose 97 Calcium 8.1 L Phosphorus 2.4 L Magnesium 2.1 Total Bilirubin 0.6 AST 28 ALT 37 Alkaline Phosphatase 140 H D Total Protein 6.0 L Albumin 2.7 L Globulin 3.3 Albumin/Globulin Ratio 0.8 L Assessment & Plan (1) Closed intertrochanteric fracture of left femur Assessment and Plan: 87 yo female with PMH = HTN, h/o TIA x2, possible h/o of "pre-infarct" or NH 7 years ago in [facility] presented to the ER at [facility] w/ L hip pain and inability to WB on LLE on 02/26/17 Dx= L hip displaced 3-part intertrochanteric fracture PLAN: -indicated for ORIF L hip fracture -plan for ORIF w/ short cephalomedulary nail vs ORIF w/ proximal femur plate, depends on stability of reduction and behaviour of GT fragment after reduction is obtained, will plan for least invasive and efficient surgery for this 87 yo pt as possible -I spent a very long time with the family/ 2 daughters and the pt with the use of a [place] speaking tower equipment repairer explaining the diagnosis and treatment options as well as the risks/benefits/alternatives to ORIF L hip fx -after answering all of their questions, the family and the pt accepted the risks and wished to proceed with surgery -we will need cardiology and medical clearance / risk stratification as soon as possible -I personally spoke with Dr. Arora, cardiology on consult, he does not feel that there are any cardiac contraindications to surgery at this point, ECHO scheduled for tomorrow/Wednesday02/27/17, he will review immediately and update me -plan for OR tomorrow (if cardiac w/u completed and cleared) vs more likely Wednesday AM 02/28/17 -hold DVT proph -NPO after MN -IVFH -villeda cath -overhead trapeze -pain control, minimize narc use, consider standing tylenol 1000 Q 8hr -will follow -please contact me with any questions, updates, concerns at [phone] Thank you for allowing me to contribute to the care of your pt. Marisel Mayen MD Orthopedic Surgery Status: Acute
[2017-03-04] MEDS ORDERED: POLYETHYLENE GLYCOL 3350 17 GM/Dose PACKET PO ONE (08:15)
--- NOTE | 2017-03-04 08:31 | CP.PCM.PN ---
Subjective - Date & Time of Evaluation Date of Evaluation: 03/04/17 Time of Evaluation: 08:27 - Subjective Subjective: Patient states the pain is getting better in left hip and right knee. Good appetite. Denies CP/SOB/dizziness/n/v/numbness/tingling. Objective - Vital Signs/Intake and Output Vital Signs (last 24 hours): Temp Pulse Resp BP Pulse Ox 98.4 F 85 18 124/66 98 03/04/17 08:01 03/04/17 08:01 03/04/17 08:01 03/04/17 08:01 03/04/17 08:01 - Medications Medications: Current Medications Acetaminophen (Tylenol 325mg Tab) 650 mg PO Q6 PRN PRN Reason: Pain, Mild (1-3) Last Admin: 03/02/17 11:59 Dose: 650 mg Aspirin (Ecotrin) 81 mg PO DAILY [facility] Last Admin: 03/03/17 09:19 Dose: 81 mg Clonazepam (Klonopin) 1 mg PO HS [facility] Last Admin: 03/03/17 21:45 Dose: 1 mg Docusate Sodium (Colace) 100 mg PO TID [facility] Last Admin: 03/03/17 18:05 Dose: 100 mg Enalapril Maleate (Vasotec) 5 mg PO DAILY [facility] Last Admin: 03/03/17 09:19 Dose: 5 mg Enoxaparin Sodium (Lovenox) 40 mg SC DAILY [facility] Last Admin: 03/03/17 09:22 Dose: 40 mg Famotidine (Pepcid) 20 mg PO DAILY [facility] Last Admin: 03/03/17 09:19 Dose: 20 mg Ferrous Sulfate (Feosol) 325 mg PO BID [facility] Last Admin: 03/03/17 18:09 Dose: 325 mg Indomethacin (Indocin) 25 mg PO TIDPC [facility] Last Admin: 03/03/17 18:06 Dose: 25 mg Isosorbide Dinitrate (Isordil) 5 mg PO BID [facility] Last Admin: 03/03/17 18:08 Dose: 5 mg Morphine Sulfate (Morphine) 1 mg IV Q6 PRN PRN Reason: Pain, severe (8-10) Rosuvastatin Calcium (Crestor) 2.5 mg PO HS [facility] Last Admin: 03/03/17 21:45 Dose: 2.5 mg - Labs Labs: 03/03/17 07:39 03/03/17 07:39 PT 12.4 SECONDS (9.7-12.2) H 02/28/17 07:08 INR 1.1 02/28/17 07:08 APTT 26 SECONDS (21-34) 02/28/17 07:08 - Constitutional Appears: Well, No Acute Distress - Extremities Exam Additional comments: LLE: dressing intact, swelling slowly improving, no visible drainage. No erythema. +ROM ankle/toes, sensation intact, calves soft NT neg homans small B knee joint effusions, less tender, no erythema. Assessment and Plan (1) Closed intertrochanteric fracture of left femur Assessment & Plan: POD#4 s/p Left hip troch IM nailing -orthopedically stable for d/c home with home PT -TTWB LLE with walker -keep dressing dry and intact -patient to f/u Dr. Mantilla within 1 week, call for appointment -continue VTE proph -d/w Dr. 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
[2017-03-04 08:32] VITALS: PULSE 65
[2017-03-04 08:38] LABS: BASO % 0.4 % (0.0-2.0); EOS % 14.1 % (0.0-4.0); HEMOGLOBIN 8.4 g/dL (11.0-16.0); LYMPH # 1.4 K/uL (1.0-4.3); LYMPH % 18.2 % (20.0-40.0); MEAN CELL VOLUME 78.9 fL (81.0-99.0); MEAN CORPUSCULAR HEMOGLOBIN 25.6 pg (27.0-31.0); MEAN CORPUSCULAR HGB CONC 32.4 g/dL (33.0-37.0); MEAN PLATELET VOLUME 7.9 fL (7.2-11.7); MONO # 0.5 K/uL (0.0-0.8); NEUT # 4.5 K/uL (1.8-7.0); NEUT % 60.3 % (50.0-75.0); RBC 3.28 Mil/uL (3.80-5.20); RED CELL DISTRIBUTION WIDTH 20.1 % (11.5-14.5); WHITE BLOOD COUNT 7.4 K/uL (4.8-10.8)
[2017-03-04 08:58] LABS: ALBUMIN 2.8 g/dL (3.5-5.0)
[2017-03-04 09:00] LABS: GFR AFRICAN-AMERICAN > 60; GFR NON-AFRICAN AMERICAN 60
[2017-03-04 09:01] LABS: ALB/GLOB RATIO 0.9 (1.0-2.1); ALT/SGPT 41 U/L (9-52); AST/SGOT 41 U/L (14-36); BLOOD UREA NITROGEN 20 mg/dL (7-17); CALCIUM 7.9 mg/dl (8.6-10.4)
[2017-03-04 09:02] LABS: MAGNESIUM 2.1 mg/dL (1.6-2.3)
[2017-03-04] MEDS: Enoxaparin 40 mg Syringe SC SCH (10:08)
--- NOTE | 2017-03-04 13:26 | RAD ---
PROCEDURE: Left femur HISTORY: s/p ORIF L hip fx COMPARISON: 02/26/2017 TECHNIQUE: Standard protocol for this study/examination. FINDINGS: Status post open reduction internal fixation of known intertrochanteric fracture. Satisfactory alignment of major fracture fragments. Intramedullary randal and associated orthopedic paraphernalia in good position. No evidence of hardware loosening. IMPRESSION: Satisfactory postoperative status.
--- NOTE | 2017-03-04 13:40 | RAD ---
PROCEDURE: Radiographs of the pelvis. HISTORY: s/p ORIF L hip fx COMPARISON: 02/26/2017 FINDINGS: BONES: Pelvic Bones: . Background generalized osteopenia Hips: Left intertrochanteric fracture transfixed by a intra medullary randal and compression screw. Hardware and fracture fragments anatomically aligned. JOINTS: Sacroiliac Joints: Iliac sided inferior sclerotic arthrosis -mild Pubic Symphysis: Pubic symphyseal hypertrophic arthrosis OTHER FINDINGS: IMPRESSION: Status post open reduction internal fixation of prior left intertrochanteric fracture
--- NOTE | 2017-03-04 14:47 | CP.PCM.DIS ---
<Smita Barger - Last Filed: 03/04/17 16:10> Provider - Provider Date of Admission: 02/26/17 13:48 Attending physician: Edgardo Kelley MD Consults: Dr. Jose Angel Arora Time Spent in preparation of Discharge (in minutes): 45 Diagnosis - Discharge Diagnosis (1) Status post hip surgery Status: Acute Comment: see summary for details (2) Anemia Status: Chronic Comment: see summary for details (3) History of angina Status: Chronic Comment: see summary for details (4) Arthritis of knee Status: Chronic Comment: see summary for details Hospital Course - Lab Results Lab Results: Micro Results 03/02/17 00:50 Stool Stool Culture - Final NO SALMONELLA, SHIGELLA OR CAMPYLOBACTER ISOLATED. 03/02/17 06:00 Blood Blood Culture - Preliminary NO GROWTH AFTER 48 HOURS 03/02/17 07:10 Blood Blood Culture - Preliminary NO GROWTH AFTER 48 HOURS 03/02/17 00:50 Stool Ova and Parasite Concentrate Exam - Final 03/02/17 05:57 Urine Urine Culture - Final No Growth (<1,000 CFU/ML) 02/28/17 Unknown Urine Urine Culture - Final 10-50,000 CFU/ML. MULTIPLE SPECIES. PROBABLE CONTAMINATION. Most Recent Lab Values WBC 7.4 K/uL (4.8-10.8) 03/04/17 08:25 RBC 3.28 Mil/uL (3.80-5.20) L 03/04/17 08:25 Hgb 8.4 g/dL (11.0-16.0) L 03/04/17 08:25 Hct 25.8 % (34.0-47.0) L 03/04/17 08:25 MCV 78.9 fL (81.0-99.0) L 03/04/17 08:25 MCH 25.6 pg (27.0-31.0) L 03/04/17 08:25 MCHC 32.4 g/dL (33.0-37.0) L 03/04/17 08:25 RDW 20.1 % (11.5-14.5) H 03/04/17 08:25 Plt Count 284 K/uL (130-400) 03/04/17 08:25 MPV 7.9 fL (7.2-11.7) 03/04/17 08:25 Neut % (Auto) 60.3 % (50.0-75.0) 03/04/17 08:25 Lymph % (Auto) 18.2 % (20.0-40.0) L 03/04/17 08:25 [place] % (Auto) 7.0 % (0.0-10.0) 03/04/17 08:25 Eos % (Auto) 14.1 % (0.0-4.0) H 03/04/17 08:25 Baso % (Auto) 0.4 % (0.0-2.0) 03/04/17 08:25 Neut # 4.5 K/uL (1.8-7.0) 03/04/17 08:25 Lymph # 1.4 K/uL (1.0-4.3) 03/04/17 08:25 [place] # 0.5 K/uL (0.0-0.8) 03/04/17 08:25 Eos # 1.0 K/uL (0.0-0.7) H 03/04/17 08:25 Baso # 0.0 K/uL (0.0-0.2) 03/04/17 08:25 PT 12.4 SECONDS (9.7-12.2) H 02/28/17 07:08 INR 1.1 02/28/17 07:08 APTT 26 SECONDS (21-34) 02/28/17 07:08 Sodium 140 mmol/L (132-148) 03/04/17 08:25 Potassium 4.1 mmol/L (3.6-5.2) 03/04/17 08:25 Chloride 106 mmol/L (98-107) 03/04/17 08:25 Carbon Dioxide 20 mmol/L (22-30) L 03/04/17 08:25 Anion Gap 18 (10-20) 03/04/17 08:25 BUN 20 mg/dL (7-17) H 03/04/17 08:25 Creatinine 0.9 MG/DL (0.7-1.2) 03/04/17 08:25 Est GFR ( Amer) > 60 03/04/17 08:25 Est GFR (Non-Af Amer) 60 03/04/17 08:25 Random Glucose 96 mg/dL (65-105) 03/04/17 08:25 Hemoglobin A1c 6.5 % (4.2-6.5) 02/27/17 08:27 Calcium 7.9 mg/dl (8.6-10.4) L 03/04/17 08:25 Phosphorus 2.9 mg/dL (2.5-4.5) 03/04/17 08:25 Magnesium 2.1 mg/dL (1.6-2.3) 03/04/17 08:25 Iron 37 ug/dL (37-170) 02/27/17 07:28 TIBC 355 ug/dL (250-450) 02/27/17 07:28 % Saturation 10 (20-55) L 02/27/17 08:27 Transferrin 255.84 mg/dL (206-381) 02/27/17 07:28 Ferritin 5.8 ng/mL 02/27/17 07:28 Total Bilirubin 0.6 mg/dL (0.2-1.3) 03/04/17 08:25 AST 41 U/L (14-36) H D 03/04/17 08:25 ALT 41 U/L (9-52) 03/04/17 08:25 Alkaline Phosphatase 212 U/L (38-126) H D 03/04/17 08:25 Total Protein 6.0 g/dL (6.3-8.3) L 03/04/17 08:25 Albumin 2.8 g/dL (3.5-5.0) L 03/04/17 08:25 Globulin 3.3 gm/dL (2.2-3.9) 03/04/17 08:25 Albumin/Globulin Ratio 0.9 (1.0-2.1) L 03/04/17 08:25 Triglycerides 108 mg/dL (0-149) 03/02/17 07:10 Cholesterol 102 mg/dL (0-199) 03/02/17 07:10 LDL Cholesterol Direct 47 mg/dL (0-129) 03/02/17 07:10 HDL Cholesterol 32 mg/dL (30-70) 03/02/17 07:10 Urine Color Yellow (YELLOW) 03/02/17 22:48 Urine Clarity Hazy (Clear) 03/02/17 22:48 Urine pH 5.0 (5.0-8.0) 03/02/17 22:48 Ur Specific [place] 1.012 (1.003-1.030) 03/02/17 22:48 Urine Protein 1+ mg/dL (NEGATIVE) H 03/02/17 22:48 Urine Glucose (UA) Normal mg/dL (Normal) 03/02/17 22:48 Urine Ketones Negative mg/dL (NEGATIVE) 03/02/17 22:48 Urine Blood Negative (NEGATIVE) 03/02/17 22:48 Urine Nitrate Negative (NEGATIVE) 03/02/17 22:48 Urine Bilirubin Negative (NEGATIVE) 03/02/17 22:48 Urine Urobilinogen 2.0 mg/dL (0.2-1.0) H 03/02/17 22:48 Ur Leukocyte Esterase Trace Mehdi/uL (Negative) 03/02/17 22:48 Urine WBC (Auto) 5 /hpf (0-5) 03/02/17 22:48 Urine RBC (Auto) 2 /hpf (0-3) 03/02/17 22:48 Ur Squamous Epith Cells 2 /hpf (0-5) 03/02/17 22:48 Ur Transition Epith Cell < 1 /hpf (0-3) 03/02/17 22:48 Amorphous Sediment Rare /ul (<OCC) H 03/02/17 22:48 Urine Bacteria Rare (<OCC) 03/02/17 22:48 C. difficile Ag & Toxin Negative (NEGATIVE) 03/02/17 00:50 Blood Type O POSITIVE 02/26/17 13:49 Antibody Screen Negative 02/26/17 13:49 - Hospital Course Hospital Course: "CC: " I tripped and fell" 87 year old female with PMHx of HTN and TIA X2 presents after she fell at home earlier today. Patient reports she had mechanical fall after she tripped and fell on small step coming out of the bathroom. She has no pain at rest. She denies LOC and states she did not hit her head. She fell on the left side of her body and was not down for long. She lives in [facility] and has been staying with her daughters for the past 1.5 months. She denies falling often, with last fall 4 years ago after she slipped in the shower. Denies chest pain, SOB, fevers, chills, diaphoresis, palpitation, weakness, changes in vision, dizziness. She only takes Enalapril 5 mg which she took this morning. She has a good appetite and has not missed meals. In [facility] she lives alone and is independent with all ADLs, IADLs. She used to follow with a electromechanical engineer for 7 years up until last year when she was told she no longer had to see him. She started seeing him after episode of chest pain and was told she had "pre-infarct " at the time. Patient takes Enalapril and Isordil as per electromechanical engineer. She does not take Aspirin due to history of hemorrhoids." In ED patient found to have hip fracture on xray. Lower Extremity CT showed mildly displaced fracture of the intertrochanteric left hip and left femoral neck. Patient has history of hypertension and Dr. Arora was consulted. Patient cleared for surgery by cardiology. 02/28 left hip IT fracture ORIF w/ cephalomedulary nail (short TFN) done by Dr. Jose Angel Dye with an estimated blood loss of 50 ml. Patient has history of anemia. After surgery HgB was 9.5, on it dropped to 9.3. Lovenox 40 mg was started and the HgB dropped to 8.4 It is stable at 8.4 Patient worked with PT and able to take steps and move to chair. Patient regaining strength and movement. Patient has mild pain in the left hip. Patient cleared for discharge by orthopaedics. Patient to go home and have PT at home. Patient will follow up with Dr. Jose Angel Dye outpatient within one week. Patient will wait for Dr. Jose Angel Dye recommendations on flying back to [facility]. This is a summary of the patient's hospital stay. Please see chart for full details. Discharge Exam - Head Exam Head Exam: ATRAUMATIC, NORMAL INSPECTION, NORMOCEPHALIC - Eye Exam Eye Exam: EOMI, Normal appearance, PERRL - ENT Exam ENT Exam: Mucous Membranes Moist - Neck Exam Neck exam: Full Rom - Respiratory Exam Respiratory Exam: Clear to PA & Lateral, NORMAL BREATHING PATTERN, UNREMARKABLE - Cardiovascular Exam Cardiovascular Exam: REGULAR RHYTHM, RRR. absent: Gallop, Systolic Murmur - GI/Abdominal Exam GI & Abdominal Exam: Normal Bowel Sounds. absent: Distended, Firm, Guarding - Extremities Exam Extremities exam: full ROM, normal inspection - Back Exam Back exam: NORMAL INSPECTION - Neurological Exam Neurological exam: Alert, Oriented x3 - Psychiatric Exam Psychiatric exam: Normal Affect, Normal Mood - Skin Skin Exam: Intact, Normal Color, Warm Additional comments: left hip dressing clean, dry, intact. no erythema, minimal edema Discharge Plan - Discharge Medications Prescriptions: Aspirin [Ecotrin] 81 mg PO DAILY #30 Atorvastatin [Lipitor] 10 mg PO DAILY #30 tab clonazePAM [Klonopin] 1 mg PO HS #15 tab Enalapril Maleate [Vasotec] 5 mg PO DAILY #30 tab Enoxaparin [Lovenox] 40 mg SC DAILY #30 syr Ferrous Sulfate [Feosol] 325 mg PO BID #60 tab Indomethacin [Indocin] 25 mg PO TIDPC PRN #60 cap PRN Reason: Pain, Moderate (4-7) Isosorbide Dinitrate [Isordil] 5 mg PO BID #60 tab - Follow Up Plan Condition: STABLE Disposition: HOME/ ROUTINE Instructions: Iron Supplements (By mouth), Isosorbide Dinitrate (By mouth), Enalapril (By mouth), Clonazepam (By mouth), Indomethacin (By mouth), Aspirin ( By mouth), Enoxaparin (By injection), Atorvastatin (By mouth), Hip Fracture (GEN ), ORIF of Hip Fracture (DC) Additional Instructions: Patient cleared for discharge as per Dr. Toledo. Patient to follow up with Dr. Mayen (orthopaedics) as an outpatient within one week. Patient may not travel until cleared by Dr. Mayen. Patient to take lovenox 40 mg daily for 4 weeks. Please take medications as prescribed. Please return to emergency room immediately if symptoms worsen or return. Patient explained instructions who understands and agrees. Referrals: Marisel Ramirez MD [Staff Provider] - <Marta Toledo V - Last Filed: 03/04/17 18:00> Provider - Provider Date of Admission: 02/26/17 13:48 Attending physician: Egdardo Kelley MD Hospital Course - Lab Results Lab Results: Micro Results 03/02/17 00:50 Stool Stool Culture - Final NO SALMONELLA, SHIGELLA OR CAMPYLOBACTER ISOLATED. 03/02/17 06:00 Blood Blood Culture - Preliminary NO GROWTH AFTER 48 HOURS 03/02/17 07:10 Blood Blood Culture - Preliminary NO GROWTH AFTER 48 HOURS 03/02/17 00:50 Stool Ova and Parasite Concentrate Exam - Final 03/02/17 05:57 Urine Urine Culture - Final No Growth (<1,000 CFU/ML) 02/28/17 Unknown Urine Urine Culture - Final 10-50,000 CFU/ML. MULTIPLE SPECIES. PROBABLE CONTAMINATION. Most Recent Lab Values WBC 7.4 K/uL (4.8-10.8) 03/04/17 08:25 RBC 3.28 Mil/uL (3.80-5.20) L 03/04/17 08:25 Hgb 8.4 g/dL (11.0-16.0) L 03/04/17 08:25 Hct 25.8 % (34.0-47.0) L 03/04/17 08:25 MCV 78.9 fL (81.0-99.0) L 03/04/17 08:25 MCH 25.6 pg (27.0-31.0) L 03/04/17 08:25 MCHC 32.4 g/dL (33.0-37.0) L 03/04/17 08:25 RDW 20.1 % (11.5-14.5) H 03/04/17 08:25 Plt Count 284 K/uL (130-400) 03/04/17 08:25 MPV 7.9 fL (7.2-11.7) 03/04/17 08:25 Neut % (Auto) 60.3 % (50.0-75.0) 03/04/17 08:25 Lymph % (Auto) 18.2 % (20.0-40.0) L 03/04/17 08:25 [place] % (Auto) 7.0 % (0.0-10.0) 03/04/17 08:25 Eos % (Auto) 14.1 % (0.0-4.0) H 03/04/17 08:25 Baso % (Auto) 0.4 % (0.0-2.0) 03/04/17 08:25 Neut # 4.5 K/uL (1.8-7.0) 03/04/17 08:25 Lymph # 1.4 K/uL (1.0-4.3) 03/04/17 08:25 [place] # 0.5 K/uL (0.0-0.8) 03/04/17 08:25 Eos # 1.0 K/uL (0.0-0.7) H 03/04/17 08:25 Baso # 0.0 K/uL (0.0-0.2) 03/04/17 08:25 PT 12.4 SECONDS (9.7-12.2) H 02/28/17 07:08 INR 1.1 02/28/17 07:08 APTT 26 SECONDS (21-34) 02/28/17 07:08 Sodium 140 mmol/L (132-148) 03/04/17 08:25 Potassium 4.1 mmol/L (3.6-5.2) 03/04/17 08:25 Chloride 106 mmol/L (98-107) 03/04/17 08:25 Carbon Dioxide 20 mmol/L (22-30) L 03/04/17 08:25 Anion Gap 18 (10-20) 03/04/17 08:25 BUN 20 mg/dL (7-17) H 03/04/17 08:25 Creatinine 0.9 MG/DL (0.7-1.2) 03/04/17 08:25 Est GFR ( Amer) > 60 03/04/17 08:25 Est GFR (Non-Af Amer) 60 03/04/17 08:25 Random Glucose 96 mg/dL (65-105) 03/04/17 08:25 Hemoglobin A1c 6.5 % (4.2-6.5) 02/27/17 08:27 Calcium 7.9 mg/dl (8.6-10.4) L 03/04/17 08:25 Phosphorus 2.9 mg/dL (2.5-4.5) 03/04/17 08:25 Magnesium 2.1 mg/dL (1.6-2.3) 03/04/17 08:25 Iron 37 ug/dL (37-170) 02/27/17 07:28 TIBC 355 ug/dL (250-450) 02/27/17 07:28 % Saturation 10 (20-55) L 02/27/17 08:27 Transferrin 255.84 mg/dL (206-381) 02/27/17 07:28 Ferritin 5.8 ng/mL 02/27/17 07:28 Total Bilirubin 0.6 mg/dL (0.2-1.3) 03/04/17 08:25 AST 41 U/L (14-36) H D 03/04/17 08:25 ALT 41 U/L (9-52) 03/04/17 08:25 Alkaline Phosphatase 212 U/L (38-126) H D 03/04/17 08:25 Total Protein 6.0 g/dL (6.3-8.3) L 03/04/17 08:25 Albumin 2.8 g/dL (3.5-5.0) L 03/04/17 08:25 Globulin 3.3 gm/dL (2.2-3.9) 03/04/17 08:25 Albumin/Globulin Ratio 0.9 (1.0-2.1) L 03/04/17 08:25 Triglycerides 108 mg/dL (0-149) 03/02/17 07:10 Cholesterol 102 mg/dL (0-199) 03/02/17 07:10 LDL Cholesterol Direct 47 mg/dL (0-129) 03/02/17 07:10 HDL Cholesterol 32 mg/dL (30-70) 03/02/17 07:10 Urine Color Yellow (YELLOW) 03/02/17 22:48 Urine Clarity Hazy (Clear) 03/02/17 22:48 Urine pH 5.0 (5.0-8.0) 03/02/17 22:48 Ur Specific [place] 1.012 (1.003-1.030) 03/02/17 22:48 Urine Protein 1+ mg/dL (NEGATIVE) H 03/02/17 22:48 Urine Glucose (UA) Normal mg/dL (Normal) 03/02/17 22:48 Urine Ketones Negative mg/dL (NEGATIVE) 03/02/17 22:48 Urine Blood Negative (NEGATIVE) 03/02/17 22:48 Urine Nitrate Negative (NEGATIVE) 03/02/17 22:48 Urine Bilirubin Negative (NEGATIVE) 03/02/17 22:48 Urine Urobilinogen 2.0 mg/dL (0.2-1.0) H 03/02/17 22:48 Ur Leukocyte Esterase Trace Mehdi/uL (Negative) 03/02/17 22:48 Urine WBC (Auto) 5 /hpf (0-5) 03/02/17 22:48 Urine RBC (Auto) 2 /hpf (0-3) 03/02/17 22:48 Ur Squamous Epith Cells 2 /hpf (0-5) 03/02/17 22:48 Ur Transition Epith Cell < 1 /hpf (0-3) 03/02/17 22:48 Amorphous Sediment Rare /ul (<OCC) H 03/02/17 22:48 Urine Bacteria Rare (<OCC) 03/02/17 22:48 C. difficile Ag & Toxin Negative (NEGATIVE) 03/02/17 00:50 Blood Type O POSITIVE 02/26/17 13:49 Antibody Screen Negative 02/26/17 13:49 Attending/Attestation - Attestation I have personally seen and examined this patient.: Yes I have fully participated in the care of the patient.: Yes I have reviewed all pertinent clinical information, including history, physical exam and plan: Yes Notes (Text): Patient seen, examined, and case discussed with day-time resident. Patient seen in the morning with daughter at bedside. Patient rejected from rehab secondary to lack of insurance; orthopedically stable, recommends anticoagulation such as Lovenox for s/p hip surgery. Physical therapy recommends for home physical therapy. Patient's hgb stable in 8's since starting lovenox two days prior. Coordinated with case management, patient to receive one month of DVT ppx ( lovenox 40mg subqdaily) provided in conjunction with voucher from the [employer] to be provided to the patient. Patient's daughter is a nurse. Will ensure teaching prior to discharge. Discussed discharge order and discharge instructions with day-time resident and patient at bedside. Discussed with case management regarding arrangements for DVT ppx dose of Lovenox given patient has completed recent hip surgery. Patient to follow-up with orthopedic to determine when patient can fly back to [facility]. Prescriptions: Aspirin 81mg PO daily Lipitor 10mg PO qHS Klonopin 1mg POqHS Enalapril 5mg PO daily Lovenox 40mg subqdaily-->1 month for anticoagulation Ferrous sulfrate 325mg PO bid Indocin 25mg PO tid PRN knee pain Isordil 5mg PO bid This is a summary of patient's hospitalization. Please see EMR for further details. Assessment/Plan (1) Fever Assessment and Plan: * POD 4 * Afebrile since 03/01/17 * Blood culture (03/02/17): no growth after 48 hours X2 * Urine culture (03/02/17): no growth * Chest xray: no active disease (2) Hip fracture Assessment and Plan: 03/03: Pt POD #4 s/p left hip open reduction and internal fixation, H/H: 8.4 Discussed with Giselle Fernandez--Ortho-PA: * orthopedically stable for d/c * patient uninsured so will need to go home * continue VTE proph x 1 month-->provided Lovenox 40mg subq daily * continue PT, walker ambulation * f/u in office of Dr. Mayen 1 week call for appointment [phone] Ortho consult placed- Dr. Ramirez- help appreciated Tylenol 650 mg Q6H PRN for pain Imaging: Lower Extremity CT: Comminuted mildly displaced fracture of the intertrochanteric left hip and left femoral neck. Status: Acute (3) Chronic Knee Pain Assessment and Plan: Hx Osteoporosis bilateral knee pain Indomethacin 25 mg TID with meals (takes Indomethacin at home) PRN Per ortho, Significant tricompartmental DJD with chrondrocalcinosis bilaterally , no acute fracture Status: Chronic (4) History of angina Assessment and Plan: Cardio consult placed- Dr. Arora- help appreciated, cleared for surgery EKG - NSR at 69 bpm Echo: left ventricle borderline dilated, left ventricular diastolic function is normal, transmitral doppler flow pattern is Grade I-abnormal relaxation pattern , LVEF 60% Crestor 2.5 mg po daily started on 03/01/17 Aspirin 81 mg po daily lipid panel: Triglycerides 108, Cholesterol 102, LDL 47, HDL 32 Vasotec 5mg PO daily Status: Acute (5) Anemia Assessment and Plan: 03/04: H/H dropped to 8.4/26.9, continue to monitor Started on DVT ppx day 2 days ago Feosol 325mg PO bid Will need to monitor H/H-->orthopedic recommending Lovenox upon discharge for anti-coagulation post hip surgery Low iron; low percent iron, ferritin normal on 02/27/17 Patient given PRBC transfusion on 02/27/17 Status: Acute (6) Leukocytosis Assessment and Plan: Resolved Status: Resolved (7) Elevated BUN Assessment and Plan: mildly elevated c/w monitor Status: resolved (8) HTN (hypertension) Assessment and Plan: continue home medication of Enalapril 5 mg PO daily Monitor vital signs Status: Chronic (9) Constipation Assessment and Plan: Colace 100mg PO TID Miralax monitor for bowel movement Status: Chronic (10) Prophylactic measure Assessment and Plan: Pepcid 20 mg PO daily Lovenox 40 mg sc daily for one 1 month for anticoagulation post hip surgery heart healthy diet Status: Acute
[2017-03-04 15:54] VITALS: BP 147/74; RESP 20; TEMP 97.5; O2SAT 98
== END 2017-03-04 17:59 | disposition home or self-care (01) | DRG 480 ==
LOC: C.ER 12:17 → C.6T 13:48
PROVIDERS: ADMIT Family Medicine; ATTEND Family Medicine
PROC: 30233N1 Transfusion of Nonautologous Red Blood Cells into Peripheral Vein, Percutaneous Approach (ICD-10-PCS; 2017-02-28)
PROC: 0QS704Z Reposition Left Upper Femur with Internal Fixation Device, Open Approach (ICD-10-PCS; principal; 2017-02-28 07:00)
DX: S72.142A Displaced intertrochanteric fracture of left femur, initial encounter for closed fracture (principal); J18.9 Pneumonia, unspecified organism; D62 Acute posthemorrhagic anemia; W10.8XXA Fall (on) (from) other stairs and steps, initial encounter; I10 Essential (primary) hypertension; F43.9 Reaction to severe stress, unspecified; D50.9 Iron deficiency anemia, unspecified; D72.829 Elevated white blood cell count, unspecified; I83.90 Asymptomatic varicose veins of unspecified lower extremity; K64.9 Unspecified hemorrhoids; M81.0 Age-related osteoporosis without current pathological fracture; N28.9 Disorder of kidney and ureter, unspecified; M17.12 Unilateral primary osteoarthritis, left knee; M17.11 Unilateral primary osteoarthritis, right knee; G89.29 Other chronic pain; R79.9 Abnormal finding of blood chemistry, unspecified; K21.9 Gastro-esophageal reflux disease without esophagitis; K59.00 Constipation, unspecified; Z91.81 History of falling; I25.2 Old myocardial infarction; Y92.002 Bathroom of unspecified non-institutional (private) residence as the place of occurrence of the external cause; Z86.73 Personal history of transient ischemic attack (TIA), and cerebral infarction without residual deficits; Z79.82 Long term (current) use of aspirin; Z90.49 Acquired absence of other specified parts of digestive tract